=== PATIENT | female | born 2000 | race Caucasian/White ===

== ENCOUNTER 2022-01-04 05:23 | Inpatient (IN) | payer MEDICAID ==
[2022-01-04] MEDS ORDERED: LACTATED RINGERS 1,000 ML IV ONE (05:36)
[2022-01-04] MEDS ORDERED: ACETAMINOPHEN 325 MG TAB PO PRN (05:58)
[2022-01-04] MEDS ORDERED: CARBOPROST TROMETHAMINE 250 MCG/1 ML INJ IM PRN (05:58)
[2022-01-04] MEDS ORDERED: BUTORPHANOL 2 MG/1 ML INJ IV PRN (05:58)
[2022-01-04] MEDS ORDERED: TERBUTALINE 1 MG/1 ML INJ SUB-Q PRN (05:58)
[2022-01-04] MEDS ORDERED: METHYLERGONOVINE MALEATE 0.2 MG/ML VIAL IM PRN (05:58)
[2022-01-04] MEDS ORDERED: LACTATED RINGERS 1,000 ML IV SCH (06:00)
[2022-01-04] MEDS ORDERED: OXYTOCIN DRIP 30 UNITS/500 ML BAG IV SCH (06:00)
--- NOTE | 2022-01-04 06:03 | History and Physical Report ---
History of Present Illness Date of examination: 01/04/22 Date of admission: 01/04/2022 Chief complaint: Contractions History of present illness: 21 y/o at 38-5/7 weeks presents to OB triage reporting regular and painful contractions. There is no vaginal bleeding or leakage of fluid. There is good movement. In OB triage, cervical exam is 4 cm dilated. She has a history of a previous delivery. She is admitted to labor and delivery in active labor and for evaluation and management of possible TOLAC. Past History Past Medical History: no pertinent history Past Surgical History: section Family/Genetic History: none Social history: no significant social history - Obstetrical History Expected Date of Delivery: 01/13/22 Actual Gestation: 38 Week(s) 5 Day(s) : 2 Para: 1 Hx # Term Pregnancies: 1 Number of Pregnancies: 0 Spontaneous Abortions: 0 Induced : 0 Number of Living Children: 1 Medications and Allergies Allergies Allergy/AdvReac Type Severity Reaction Status Date / Time No Known Allergies Allergy Verified 01/04/22 05:39 Active Meds: Active Medications Acetaminophen (Acetaminophen 325 Mg Tab) 650 mg PO Q4H PRN PRN Reason: Pain, Mild (1-3) Butorphanol Tartrate (Butorphanol 2 Mg/1 Ml Inj) 2 mg IV Q2H PRN PRN Reason: Pain, Moderate(4-6) LABOR PAIN Carboprost Tromethamine (Carboprost Tromethamine 250 Mcg/1 Ml Inj) 250 mcg IM ONCE PRN PRN Reason: Uterine Bleeding Fentanyl (Fentanyl 100 Mcg/2 Ml Inj) 100 mcg IV Q2H PRN PRN Reason: Pain,Severe (7-10) LABOR PAIN Lactated Ringer's (Lactated Ringers) 1,000 mls @ 125 mls/hr IV DIRECT EVELYN Oxytocin/Sodium Chloride (Pitocin/Ns 30 Unit/500ml) 30 units in 500 mls @ 40 mls/hr IV TITR EVELYN; Protocol Methylergonovine Maleate (Methylergonovine Maleate 0.2 Mg/Ml Vial) 0.2 mg IM ONCE PRN PRN Reason: Uterine Bleeding Terbutaline Sulfate (Terbutaline 1 Mg/1 Ml Inj) 0.25 mg SUB-Q ONCE PRN PRN Reason: Hyperstimulation/Hypertonicity Review of Systems All systems: negative - Vital Signs Vital signs: Vital Signs Temp Resp Pulse Ox 98.2 F 14 100 01/04/22 05:27 01/04/22 05:27 01/04/22 05:27 Temp Pulse Resp BP Pulse Ox 98.2 F 91 H 14 99 01/04/22 05:27 01/04/22 05:59 01/04/22 05:27 01/04/22 05:59 - Physical Exam Breasts: Positive: normal Cardiovascular: Regular rate Lungs: Positive: Normal air movement Abdomen: Positive: normal appearance Genitourinary (Female): Positive: normal external genitalia, normal perenium Vulva: both: normal Vagina: Positive: normal moisture Uterus: Positive: enlarged Adnexa: both: normal Anus/Rectum: Positive: normal perianal skin Extremities: Positive: normal Deep Tendon Reflex Grade: Normal +2 - Obstetrical FHR: category 1 Uterine Contraction Monitor Mode: External Cervical Dilatation: 4 Cervical Effacement Percentage: 70 station: -3 Uterine Contraction Frequency (min): 6 Uterine Contraction Pattern: Regular Uterine Tone Measurement Phase: Contraction Uterine Contraction Intensity: Moderate Results All other labs normal. Ultrasound: pending Assessment and Plan - Patient Problems (1) 38 weeks gestation of Current Visit: Yes Status: Acute Plan to address problem: care is up-to-date at [facility]. Morning nursing shift to call office to obtain records. GBS status is unknown at this time. No current risk factors warranting intrapartum GBS prophylaxis with PCN. (2) Active labor at term Current Visit: Yes Status: Acute Plan to address problem: The patient is 4 cm dilated. Admit to Labor and Delivery for management. (3) Desires (vaginal after ) trial Current Visit: Yes Status: Acute Plan to address problem: The patient had a previous delivery. Ultrasound for EFW is pending. Admit to Labor and Delivery to evaluate for possible TOLAC.
[2022-01-04 06:31] LABS: Hematocrit 30.5 % (30.3-42.9); Hemoglobin 9.5 gm/dl (10.1-14.3); Mean Corpuscular HGB Conc 31 % (30-34); Platelet Count 259 K/mm3 (140-440); Red Cell Distribution Width 17.5 % (13.2-15.2)
[2022-01-04 06:32] LABS: Mean Corpuscular Volume 65 fl (79-97)
--- NOTE | 2022-01-04 06:52 | Ultrasound Report ---
ULTRASOUND OBSTETRIC LIMITED INDICATION / CLINICAL INFORMATION: EFW ISABELA. Clinical Gestational Age (GA) in weeks, days: 38 weeks 5 days TECHNIQUE: Transabdominal. COMPARISON: None available. FINDINGS: Single live intrauterine in cephalic presentation with heart rate measuring 135 bpm. measurements correspond to a gestational age of 38 weeks and 0 days with an estimated weight of 3463 g. AMNIOTIC FLUID INDEX (cm) = 9.0 (normal = 7-24 cm) ADDITIONAL FINDINGS: None. IMPRESSION: 1. Single live intrauterine with ultrasound age of 38 weeks and 0 days. Estimated we ight of 3463 g. 2. Amniotic fluid index is within normal limits, measuring 9.0 cm. Signer Name: Ronnie Santiago MD Signed: 01/04/2022 6:47 AM Workstation Name: [id number]
--- NOTE | 2022-01-04 08:05 | Event Note ---
Date: 01/04/22 (0755) Evaluated patient in room, currently in pain states 03/06. Vag exam -3 posterior, soft and BBW. Instructed Rn to initiate epidural prep for patient. Informed aircraft load controller MD ( Dr. Broussard).
[2022-01-04] MEDS: fentaNYL 100 MCG/2 ML INJ IV PRN (08:11)
--- NOTE | 2022-01-04 08:14 | History and Physical Report ---
History of Present Illness Date of examination: 01/04/22 Date of admission: 01/04/22 05:58 01/04/2022 Chief complaint: Pain History of present illness: Patient present to labor and delivery c/o of contractions. Patient of [facility]. At 38.5wks gestation with a history if x1 post dates for macrosomia, 9lbs 2.5oz. She has had minimal care (x1 visit), GBS neg, RPR reactive ( titer 1:1). 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 (titer 1:1) Family/Genetic History: none - Obstetrical History Expected Date of Delivery: 01/13/22 Actual Gestation: 38 Week(s) 5 Day(s) : 2 Para: 1 Hx # Term Pregnancies: 0 Number of Pregnancies: 0 Spontaneous Abortions: 0 Induced : 0 Number of Living Children: 1 #1 year: 2,021 Birthweight: 9 lb 3.2 oz Method of Delivery: Gestational age at delivery: 41 (macrosomia) Medications and Allergies Allergies Allergy/AdvReac Type Severity Reaction Status Date / Time No Known Allergies Allergy Verified 01/04/22 05:39 Active Meds: Active Medications Acetaminophen (Acetaminophen 325 Mg Tab) 650 mg PO Q4H PRN PRN Reason: Pain, Mild (1-3) Butorphanol Tartrate (Butorphanol 2 Mg/1 Ml Inj) 2 mg IV Q2H PRN PRN Reason: Pain, Moderate(4-6) LABOR PAIN Carboprost Tromethamine (Carboprost Tromethamine 250 Mcg/1 Ml Inj) 250 mcg IM ONCE PRN PRN Reason: Uterine Bleeding Fentanyl (Fentanyl 100 Mcg/2 Ml Inj) 100 mcg IV Q2H PRN PRN Reason: Pain,Severe (7-10) LABOR PAIN Lactated Ringer's (Lactated Ringers) 1,000 mls @ 125 mls/hr IV DIRECT EVELYN Oxytocin/Sodium Chloride (Pitocin/Ns 30 Unit/500ml) 30 units in 500 mls @ 40 mls/hr IV TITR EVELYN; Protocol Methylergonovine Maleate (Methylergonovine Maleate 0.2 Mg/Ml Vial) 0.2 mg IM ONCE PRN PRN Reason: Uterine Bleeding Terbutaline Sulfate (Terbutaline 1 Mg/1 Ml Inj) 0.25 mg SUB-Q ONCE PRN PRN Reason: Hyperstimulation/Hypertonicity - Vital Signs Vital signs: Vital Signs Temp Resp Pulse Ox 98.2 F 14 100 01/04/22 05:27 01/04/22 05:27 01/04/22 05:27 Temp Pulse Resp BP Pulse Ox 98.2 F 105 H 14 99 01/04/22 05:27 01/04/22 08:04 01/04/22 05:27 01/04/22 08:04 Results Result Diagrams: 01/04/22 05:45 Abnormal lab results 01/04/22 Range/Units 05:45 Hgb 9.5 L (10.1-14.3) gm/dl MCV 65 L (79-97) fl MCH 20 L (28-32) pg RDW 17.5 H (13.2-15.2) % All other labs normal.
--- NOTE | 2022-01-04 08:21 | Event Note ---
Date: 01/04/22 The patient's previous delivery was on November 2020 and performed at [facility] in [place], [place]. According the patient, that was over 9 pounds upon delivery and she passed her due date. An operative report is unavailable at this time. Today, OB US Limited= SLIUP. Fundal Placenta. Vertex. 3463 g (58th %-ile). ISABELA= 9.0 cm. The current cervical exam is 6/70%/-3. The patient was counseled regarding the risks of attempting trial of labor after delivery and vaginal after section per ACOG Practice Bulletin 205. The patient understands that the risk of uterine rupture is less than 2%. As such, it is reasonable to attempt TOLAC at this time. Patient wishes to proceed. Consent form was signed. Epidural for pain control. Artificial rupture membranes thereafter. Consider intrauterine pressure catheter if needed.
[2022-01-04] MEDS ORDERED: ePHEDrine SULFATE 50 MG/1 ML INJ ONE (08:33)
[2022-01-04] MEDS ORDERED: NALOXONE 0.4 MG/1 ML INJ IV PRN (10:06)
[2022-01-04] MEDS ORDERED: ePHEDrine SULFATE 50 MG/1 ML INJ IV PRN (10:06)
--- NOTE | 2022-01-04 10:18 | Event Note ---
Date: 01/04/22 pt evaluated and very lengthy discussion on the risks, benefits and alternatives of having TOLAC less than 18months since her last surgery. Nurse present in the room. Pt states she now has better understanding however she still desires to have a trial of vag trial. Shared decision making done and I will continue expectant management. No pitocin will be given. Pelvic 6-7/90/-3 and intact. Will proceed for emergent section if non-reassuring FHR. All questions encouraged and answered.
[2022-01-04] MEDS: fentaNYL-BUPIV 2 MCG/ML-0.125% 200 MCG/100 ML BAG EPIDURAL SCH ×3 (10:36→23:28)
--- NOTE | 2022-01-04 15:21 | Anesthesia Consultation ---
Anesthesia Consult and Med Hx Date of service: 01/04/22 - Airway Anesthetic Teeth Evaluation: Good ROM Head & Neck: Adequate Mental/Hyoid Distance: Adequate Mallampati Class: Class II Intubation Access Assessment: Good - Pulmonary Exam CTA: Yes - Cardiac Exam Cardiac Exam: RRR - Pre-Operative Health Status ASA Pre-Surgery Classification: ASA2 Proposed Anesthetic Plan: Epidural - Pulmonary Hx Smoking: No Hx Asthma: No Hx Respiratory Symptoms: No SOB: No COPD: No Home Oxygen Therapy: No Hx Pneumonia: No Hx Sleep Apnea: No - Cardiovascular System Hx Hypertension: No Hx Coronary Artery Disease: No Hx Heart Attack/AMI: No Hx Angina: No Hx Percutaneous Transluminal Coronary Angioplasty (PTCA): No Hx Cardia Arrhythmia: No Hx Pacemaker: No Hx Internal Defibrillator: No Hx Valvular Heart Disease: No Hx Heart Murmur: No Hx Peripheral Vascular Disease: No - Central Nervous System Hx Neuromuscular Disorder: No Hx Seizures: No CVA: No Hx Back Pain: No Hx Psychiatric Problems: No - Gastrointestinal Hx Ulcer: No Hx Gastroesophageal Reflux Disease: No - Endocrine Hx Renal Disease: No Hx End Stage Renal Disease: No Hx Cirrhosis: No Hx Liver Disease: No Hx Insulin Dependent Diabetes: No Hx Non-Insulin Dependent Diabetes: No Hx Thyroid Disease: No Hx Hypothyroidism: No Hx Hyperthyroidism: No - Hematic Hx Anemia: No Hx Sickle Cell Disease: No - Other Systems Hx Alcohol Use: No Hx Substance Use: No Hx Cancer: No Hx Obesity: No
[2022-01-04] MEDS ORDERED: ONDANSETRON 4 MG/2 ML INJ ONE (21:33)
[2022-01-05] MEDS ORDERED: ONDANSETRON 4 MG/2 ML INJ ONE (03:28)
[2022-01-05] MEDS: fentaNYL 100 MCG/2 ML INJ IV PRN ×2 (03:29→05:23)
[2022-01-05] MEDS: fentaNYL-BUPIV 2 MCG/ML-0.125% 200 MCG/100 ML BAG EPIDURAL SCH (05:37)
--- NOTE | 2022-01-05 05:59 | Event Note ---
Date: 01/05/22 The anesthesia team was consulted with regards to assessing the patient's neuraxial analgesia post placement of epidural catheter. EFM= category 1 TOCO= q 3-5 min SVE= 8/90%/-3. AROM'ed. Meconium noted. IUPC and FSE placed for closer monitoring. Amnioinfusion ordered. Pitocin (no higher than 4 mU/h) if CTX are not adequate.
[2022-01-05] MEDS ORDERED: SODIUM CHLORIDE 0.9% 1000 ML 1,000 ML VG SCH ×2 (06:00)
[2022-01-05] MEDS ORDERED: BUPIVACAINE/PF (0.5%) 5 MG/1 ML 30 ML VIAL INFILTRATI ONE (08:07)
[2022-01-05] MEDS ORDERED: MINERAL OIL 30 ML ORAL LIQD ONE ×2 (09:31→11:33)
[2022-01-05] MEDS ORDERED: AZITHROMYCIN 250 MG TAB PO ONE ×2 (10:00→17:30)
[2022-01-05] MEDS ORDERED: OXYTOCIN DRIP 30 UNITS/500 ML BAG IV SCH (10:00)
--- NOTE | 2022-01-05 10:40 | Progress Note ---
Labor Epidural - Labor Epidural Start Time: 09:12 Stop Time: :17 Performed by:: RADHA VELAZQUEZ Procedure: MICHELLE placed at BS. Pt on monitors. TO performed. Labs reviewed. Sterile technique maintained. VSS KYARA at 8cm L3-4. Cath at 11cm. Pt carlotta well.
--- NOTE | 2022-01-05 11:47 | Procedure Note ---
OB Delivery Note - Delivery Date of Delivery: 01/05/22 (1016) Surgeon: ANCA HDZ Estimated blood loss: other (400) - Vaginal Delivery presentation: vertex Delivery position: OA Intrapartum events: meconium, mult. late decelerations, mult.variable deceleratio Delivery induction: none Delivery augmentation: rupture of membranes, pitocin Delivery monitor: internal FHT, internal uterine Route of delivery: Delivery placenta: spontaneous Delivery cord: 3 umbilical vessels Episiotomy: none Delivery laceration: 2nd degree, vaginal side wall Delivery repair: vicryl Anesthesia: epidural Delivery comments: of live 8'0 female over bilateral 2nd degree vaginal wall lacerations and a 2nd degree perineal laceration under epidural anesthesia with Apgars of 3 and 8 at 1016 on 01/05/2022. not stimulated; Cord double clamped and cut by PARISH Hdz, and handed directly to awaiting NICU/RESP team due to meconium stained fluids. Cord blood gasses collected x 2; Cord blood also collected. Vaginal and Perineal lacerations repaired with 2-[address]-1 and SH. Placenta to pathology. - Infant A at 1 minute: 3 at 5 minutes: 7 Gender: Female (8'0)
[2022-01-05] MEDS ORDERED: WITCH HAZEL/ GLYCERIN PAD TP PRN (12:30)
[2022-01-05] MEDS ORDERED: BENZOCAINE/MENTHOL 20/0.5% TOP SPRAY 56 GM TP PRN (12:30)
[2022-01-05] MEDS ORDERED: diphenhydrAMINE 25 MG CAP PO PRN (12:30)
[2022-01-05] MEDS ORDERED: PROMETHAZINE 25 MG TAB PO PRN (12:30)
[2022-01-05] MEDS ORDERED: LANOLIN/ZINC/DIMETHICONE (LANSINOH) 7 GM TP PRN (12:30)
[2022-01-05] MEDS: IBUPROFEN 800 MG TAB PO SCH ×2 (12:50→16:59)
[2022-01-05] MEDS: ALUM-MAG HYDROXIDE-SIMETHICONE 200-200-20MG/5ML ORAL LIQD 30 ML PO PRN (13:49)
[2022-01-05] MEDS: HYDROcodone/ACETAMINOPHEN 5-325 MG TAB PO PRN (14:46)
[2022-01-05] MEDS: FERROUS SULFATE 325 MG TAB PO SCH (22:18)
[2022-01-06 00:14] LABS: Hematocrit 28.7 % (30.3-42.9); Hemoglobin 8.9 gm/dl (10.1-14.3)
[2022-01-06] MEDS: HYDROcodone/ACETAMINOPHEN 5-325 MG TAB PO PRN ×2 (01:35→08:37)
[2022-01-06] MEDS: IBUPROFEN 800 MG TAB PO SCH ×3 (06:47→23:45)
[2022-01-06 10:11] LABS: Hematocrit 28.4 % (30.3-42.9); Hemoglobin 8.7 gm/dl (10.1-14.3); Mean Corpuscular HGB Conc 31 % (30-34); Mean Corpuscular Volume 65 fl (79-97); Platelet Count 263 K/mm3 (140-440); Red Blood Count 4.34 M/mm3 (3.65-5.03); Red Cell Distribution Width 18.2 % (13.2-15.2)
[2022-01-06] MEDS: FERROUS SULFATE 325 MG TAB PO SCH ×2 (10:30→21:51)
[2022-01-06] MEDS: PRENATAL VIT27-FE FUMARATE-FOLIC ACID VIT TAB PO SCH (10:30)
[2022-01-06 11:54] LABS: Basophils % (Manual) 0 % (0.0-1.8); Burr Cells 1+; Eosinophils % (Manual) 0 % (0.0-4.3); Hypochromasia 2+; Platelet Estimate Consistent w Auto; Total Cells Counted 100
--- NOTE | 2022-01-06 12:19 | Event Note ---
Date: 01/06/22 pt evaluated in escruciating pain. fundal tenderness present and perineum with sutures and somewhat irregularly placed. No active bleed. Will give broad spectrum abx amp/gent/clinda for endomyometritis and to enhance wound healing. Pt told not to use shay-squirt bottle. Will repeat cbc in 24hrs. May have motrin ATC and percocet for better pain control. Bimanual with cervix 1cm dilated and small dark clots removed.
--- NOTE | 2022-01-06 12:23 | Progress Note ---
Assessment and Plan PPD#1, with endomyometritis and irreg perineal wound edges; asymptomatic anemia 1. give broad spectrum abx and repeat cbc 2. may have percocet and motrin for pain relief 3. Will also give IV hydration x24 until tacchycardia resolves 4. Continue iron supplement BID and add vitamin C BID and colace prn All questions encouraged and answered Subjective Date of service: 01/06/22 Principal diagnosis: PPD#1 Interval history: Nurse came in the room while I was evaluating patient and pt had not voided with unsuccessful attempt earlier. Pt taken to the bathroom by me and faucet turned on and pt voided 700cc of blood tinged urine. Pt is bottle feeding. Pt tolerating diet. Denies dysuria. Pt slightly limping as she ambulated and pt denied dizziness. Objective - Constitutional Vitals: Vital Signs - 12hr 01/06/22 01/06/22 01/06/22 00:48 01:35 06:47 Temperature 98.2 F Pulse Rate 125 H Respiratory 20 16 16 Rate Blood Pressure 123/61 O2 Sat by Pulse 96 Oximetry O2 Sat by Pulse Oximetry [ Anterior Bilateral Throughout] 01/06/22 01/06/22 08:05 08:37 Temperature 97.9 F Pulse Rate 125 H Respiratory 20 Rate Blood Pressure 145/71 O2 Sat by Pulse 97 Oximetry O2 Sat by Pulse 98 Oximetry [ Anterior Bilateral Throughout] General appearance: Present: mild distress - Neck Neck: normal ROM - Respiratory Respiratory effort: normal - Breasts Breasts: deferred - Cardiovascular Rhythm: other (maternal tacchycardia) Extremities: No edema - Gastrointestinal General gastrointestinal: Present: soft, non-tender - Genitourinary Female genitourinary: other (fundus at umbilicus and very tender, perineal laceration with irregular suturing and some overlap of skin; bimanual as stated earlier in previous event note) - Neurologic Neurologic: moves all extremities - Psychiatric Psychiatric: cooperative - Labs CBC & Chem 7: 01/06/22 09:41 Labs: Abnormal lab results 01/05/22 01/06/22 Range/Units 23:55 09:41 WBC 18.9 H (4.5-11.0) K/mm3 Hgb 8.9 L 8.7 L (10.1-14.3) gm/dl Hct 28.7 L 28.4 L (30.3-42.9) % MCV 65 L (79-97) fl MCH 20 L (28-32) pg RDW 18.2 H (13.2-15.2) % Seg Neuts % (Manual) 90.0 H (40.0-70.0) % Lymphocytes % (Manual) 6.0 L (13.4-35.0) % Seg Neutrophils # Man 17.0 H (1.8-7.7) K/mm3 Lymphocytes # (Manual) 1.1 L (1.2-5.4) K/mm3 Medications & Allergies - Medications Allergies/Adverse Reactions: Allergies No Known Allergies Allergy (Verified 01/04/22 05:39) Active Medications: Generic Name Dose Route Start Last Admin Trade Name Freq PRN Reason Stop Dose Admin Hydrocodone Bitart/Acetaminophen 2 each 01/05/22 12:30 01/06/22 08:37 Hydrocodone/Acetaminophen 5-325 Mg Tab PO 2 each Q6H PRN Administration Pain, Moderate (4-6) Al Hydrox/Mg Hydrox/Simethicone 30 ml 01/05/22 13:44 01/05/22 13:49 Alum-Mag Hydroxide-Simethicone 279-842-19ph/5ml Oral Liqd 30 Ml PO 30 ml Q4H PRN Administration Indigestion Benzocaine/Menthol 1 spray 01/05/22 12:30 01/05/22 14:46 Benzocaine/Menthol 20/0.5% Top [place] 56 Gm TP 1 spray PRN PRN Administration Episiotomy Pain Bisacodyl 10 mg 01/05/22 13:00 Bisacodyl 10 Mg Rect Supp [place] BID PRN Constipation Diphenhydramine HCl 25 mg 01/05/22 12:30 Diphenhydramine 25 Mg Cap PO Q6H PRN Itching Ferrous Sulfate 325 mg 01/05/22 22:00 01/06/22 10:30 Ferrous Sulfate 325 Mg Tab PO 325 mg BID EVELYN Administration Ampicillin Sodium 2 gm in 100 mls @ 100 mls/hr 01/06/22 13:00 Ampicillin/Ns 2 Gm/100 Ml IV 01/08/22 12:59 Q6H EVELYN Protocol Gentamicin Sulfate/Sodium Chloride 100 mg in 100 mls @ 200 mls/hr 01/06/22 12:12 Gentamicin/Ns 100 Mg/100 Ml IV 01/06/22 12:41 Q8HR ONE Protocol Clindamycin HCl 900 mg in 50 mls @ 100 mls/hr 01/06/22 13:00 Cleocin 900 Mg/50 Ml IV 01/08/22 12:59 Q8H EVELYN Protocol Ibuprofen 800 mg 01/05/22 12:00 01/06/22 06:47 Ibuprofen 800 Mg Tab PO 800 mg Q6H EVELYN Administration Multi-Ingredient Ointment 1 applic 01/05/22 12:30 Lanolin/Zinc/Dimethicone (Lansinoh) 7 Gm TP PRN PRN Sore Nipples Multivitamins/Iron/Calcium 1 each 01/06/22 10:00 01/06/22 10:30 [id number] Fumarate-Folic Acid Vit Tab PO 1 each QDAY EVELYN Administration Promethazine HCl 25 mg 01/05/22 12:30 01/05/22 12:21 Promethazine 25 Mg Tab PO 25 mg Q6H PRN Administration Nausea And Vomiting Sodium Chloride 10 ml 01/05/22 12:00 Sodium Chloride 0.9% 10 Ml Flush Syringe IV 01/10/22 11:59 PRN NR Witch Chanel/Glycerin 1 each 01/05/22 12:30 01/05/22 14:47 Witch Chanel/ Glycerin Pad TP 1 each PRN PRN Administration Hemorrhoid/cleansing/soothing
[2022-01-06] MEDS: AMPICILLIN/NS 2 GM/100 ML 2 GM/100 ML BAG IV SCH ×2 (13:22→20:02)
[2022-01-06] MEDS: LACTATED RINGERS 1,000 ML IV SCH (13:38)
[2022-01-06] MEDS ORDERED: GENTAMICIN/NS 100 MG/100 ML 100 MG/100 ML BAG IV ONE (14:00)
[2022-01-06] MEDS: DOCUSATE SODIUM 100 MG CAP PO SCH (21:51)
[2022-01-07] MEDS: AMPICILLIN/NS 2 GM/100 ML 2 GM/100 ML BAG IV SCH ×3 (02:17→20:35)
[2022-01-07] MEDS: HYDROcodone/ACETAMINOPHEN 5-325 MG TAB PO PRN ×2 (02:21→20:32)
[2022-01-07] MEDS: IBUPROFEN 800 MG TAB PO SCH (05:10)
[2022-01-07] MEDS: LACTATED RINGERS 1,000 ML IV SCH (08:32)
--- NOTE | 2022-01-07 08:51 | Progress Note ---
Assessment and Plan A: PPD # 2 - afebrile P: Continue IV antibiotics CBC at 4 pm today Consider discharge this evening Subjective - Subjective Date of service: 01/07/22 Principal diagnosis: PPD#2 Patient reports: appetite normal [place]: doing well Objective - Vital Signs Latest vital signs: Vital Signs Temp Pulse Resp BP Pulse Ox Pulse Ox 01/07/22 05:10 20 01/07/22 02:21 20 01/07/22 01:33 98.7 F 114 H 20 124/62 96 01/06/22 23:45 20 01/06/22 20:00 98 01/06/22 15:25 97.9 F 95 H 20 122/63 97 01/06/22 09:43 103 H 122/58 98 Intake and Output 01/06/22 01/07/22 01/07/22 22:59 06:59 14:59 Intake Total 1390 820 Output Total 650 Balance 740 820 Intake: IV 1150 100 AMPICILLIN/NS 2 GM/100 ML 100 100 2 gm In 100 ml @ 100 mls /hr IV Q6H EVELYN Rx#: [id number] CLEOCIN 900 MG/50 mL 900 50 mg In 50 ml @ 100 mls/hr IV Q8H EVELYN Rx#:[id number] Lactated Ringers 1,000 ml 1000 @ 125 mls/hr IV DIRECT EVELYN Rx#:[id number] Oral 240 360 Intake, Free Water 360 Output: Urine 650 Void 650 Other: Total, Intake Amount 240 120 Total, Output Amount 650 Voiding Method Toilet # Voids Void 1 - Exam Breasts: Present: deferred Cardiovascular: Present: Regular rate (still with occasional tachycardia) Abdomen: Present: soft Vulva: both: normal Uterus: Present: fundal height below umbilicus Extremities: Present: normal Deep Tendon Reflex Grade: Normal +2 Incision: Present: normal - Labs Labs: Abnormal lab results 01/06/22 Range/Units 09:41 WBC 18.9 H (4.5-11.0) K/mm3 Hgb 8.7 L (10.1-14.3) gm/dl Hct 28.4 L (30.3-42.9) % MCV 65 L (79-97) fl MCH 20 L (28-32) pg RDW 18.2 H (13.2-15.2) % Seg Neuts % (Manual) 90.0 H (40.0-70.0) % Lymphocytes % (Manual) 6.0 L (13.4-35.0) % Seg Neutrophils # Man 17.0 H (1.8-7.7) K/mm3 Lymphocytes # (Manual) 1.1 L (1.2-5.4) K/mm3
[2022-01-07] MEDS: FERROUS SULFATE 325 MG TAB PO SCH ×2 (11:54→22:39)
[2022-01-07] MEDS: DOCUSATE SODIUM 100 MG CAP PO SCH ×2 (11:54→22:39)
[2022-01-07] MEDS: PRENATAL VIT27-FE FUMARATE-FOLIC ACID VIT TAB PO SCH (11:55)
--- NOTE | 2022-01-07 12:09 | Consultation ---
History of Present Illness - Reason for Consult Consult date: 01/07/22 Reason for consult: mental health eval - History of Present Psychiatric Illness The patient was seen today. She was admitted for childbirth. The patient is calm and cooperative. She is pleasant and polite. Her baby is at bedside. She is patting the baby's back in a loving way. The patient says this is her second child. She says she feels "tired, in pain a little and relieved." She says "relieved that I was able to push her out and not need a like I did with my first baby." She is smiling. The patient says she seen a psychiatrist when she was little for anger issues. She says "I'm able to control my anger better now." She also says she was depressed when she was a kid. 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 She says "that was about 4-5 years ago, but I have done that lately." The patient denies being on any medications. She says at the moment she feels pretty good. I discussed with the patient the benefit of a counselor to her as a young mom. She says "I don't need one right now, but maybe later." She denies SI/HI or hallucinations of any kind. She thanks me and wishes me a good day at the end of the visit. REVIEW OF SYSTEMS Constitutional: Negative for weight loss ENT: Negative for stridor Respiratory: Negative for cough or hemoptysis All other systems reviewed and are negative MENTAL STATUS General Appearance and Behavior: age appropriate, good eye contact, cooperative, calm and pleasant Cooperation: Cooperative Psychomotor Behavior: within normal limits Mood: pretty good Affect and affective range: Congruent with stated mood Thought Process: Goal oriented Thought Content: Reality oriented Speech: Normal volume and Regular rate and rhythm Suicidal Ideation: Denies Homicidal Ideation: Denies Hallucinations:Denies Delusions: None elicited Impulse Control: Normal Insight and Judgment: Good Memory: Good Attention: Attentive Orientation: alert and oriented X 4 Diagnosis: Encounter for Mental Health Eval Treatment Plan No scripts given Medical: per primary Disposition: Do not recommend acute psychiatric inpatient treatment Will sign off. Thanks Case staffed with Dr. Joshi Medications and Allergies Allergies Allergy/AdvReac Type Severity Reaction Status Date / Time No Known Allergies Allergy Verified 01/04/22 05:39 Home Medications Medication Instructions Recorded Confirmed Last Taken Type No Known Home Medications [No 01/06/22 01/06/22 Unknown History Reported Home Medications] Active Meds: Active Medications Hydrocodone Bitart/Acetaminophen (Hydrocodone/Acetaminophen 5-325 Mg Tab) 2 each PO Q6H PRN PRN Reason: Pain, Moderate (4-6) Last Admin: 01/07/22 02:21 Dose: 2 each Al Hydrox/Mg Hydrox/Simethicone (Alum-Mag Hydroxide-Simethicone [id number]/5ml Oral Liqd 30 Ml) 30 ml PO Q4H PRN PRN Reason: Indigestion Last Admin: 01/05/22 13:49 Dose: 30 ml Benzocaine/Menthol (Benzocaine/Menthol 20/0.5% Top [place] 56 Gm) 1 spray TP PRN PRN PRN Reason: Episiotomy Pain Last Admin: 01/05/22 14:46 Dose: 1 spray Bisacodyl (Bisacodyl 10 Mg Rect Supp) 10 mg [place] BID PRN PRN Reason: Constipation Diphenhydramine HCl (Diphenhydramine 25 Mg Cap) 25 mg PO Q6H PRN PRN Reason: Itching Docusate Sodium (Docusate Sodium 100 Mg Cap) 100 mg PO BID [facility] Last Admin: 01/07/22 11:54 Dose: 100 mg Ferrous Sulfate (Ferrous Sulfate 325 Mg Tab) 325 mg PO BID [facility] Last Admin: 01/07/22 11:54 Dose: 325 mg Ampicillin Sodium (Ampicillin/Ns 2 Gm/100 Ml) 2 gm in 100 mls @ 100 mls/hr IV Q6H EVELYN; Protocol Stop: 01/08/22 12:59 Last Admin: 01/07/22 08:26 Dose: 100 mls/hr Clindamycin HCl (Cleocin 900 Mg/50 Ml) 900 mg in 50 mls @ 100 mls/hr IV Q8H EVELYN; Protocol Stop: 01/08/22 12:59 Last Admin: 01/06/22 23:45 Dose: 100 mls/hr Lactated Ringer's (Lactated Ringers) 1,000 mls @ 125 mls/hr IV DIRECT EVELYN Stop: 01/11/22 20:59 Last Admin: 01/07/22 08:32 Dose: 125 mls/hr Ibuprofen (Ibuprofen 800 Mg Tab) 800 mg PO Q6H [facility] Last Admin: 01/07/22 05:10 Dose: 800 mg Multi-Ingredient Ointment (Lanolin/Zinc/Dimethicone (Lansinoh) 7 Gm) 1 applic TP PRN PRN PRN Reason: Sore Nipples Multivitamins/Iron/Calcium ( [id number] Fumarate-Folic Acid Vit Tab) 1 each PO QDAY [facility] Last Admin: 01/07/22 11:55 Dose: 1 each Promethazine HCl (Promethazine 25 Mg Tab) 25 mg PO Q6H PRN PRN Reason: Nausea And Vomiting Last Admin: 01/05/22 12:21 Dose: 25 mg Sodium Chloride (Sodium Chloride 0.9% 10 Ml Flush Syringe) 10 ml IV PRN NR Stop: 01/10/22 11:59 Witch Chanel/Glycerin (Witch Chanel/ Glycerin Pad) 1 each TP PRN PRN PRN Reason: Hemorrhoid/cleansing/soothing Last Admin: 01/05/22 14:47 Dose: 1 each Mental Status Exam - Vital signs Last Vital Signs Temp 98.0 F 01/07/22 08:44 Pulse 93 H 01/07/22 08:44 Resp 18 01/07/22 08:44 BP 115/60 01/07/22 08:44 Pulse Ox 98 01/07/22 08:44 Results Result Diagrams: 01/06/22 09:41 All other labs normal.
[2022-01-07 17:20] LABS: Basophils % (Auto) 0.1 % (0.0-1.8); Eosinophils # (Auto) 0.1 K/mm3 (0.0-0.4); Eosinophils % (Auto) 0.7 % (0.0-4.3); Hematocrit 27.2 % (30.3-42.9); Hemoglobin 8.2 gm/dl (10.1-14.3); Lymphocytes % (Auto) 6.1 % (13.4-35.0); Mean Corpuscular HGB Conc 30 % (30-34); Monocytes # (Auto) 0.6 K/mm3 (0.0-0.8); Monocytes % (Auto) 3.4 % (0.0-7.3); Platelet Count 291 K/mm3 (140-440); Red Blood Count 4.12 M/mm3 (3.65-5.03); Red Cell Distribution Width 18.4 % (13.2-15.2)
[2022-01-07 17:22] LABS: Mean Corpuscular Volume 66 fl (79-97)
--- NOTE | 2022-01-07 22:33 | XRay Report ---
ABDOMEN 1 VIEW 01/07/2022 9:22 PM INDICATION / CLINICAL INFORMATION: abdominal pain/ileus vs obstruction. COMPARISON: None available. FINDINGS: There is mild distention/dilatation of bowel loops within the mid abdomen. No free air is i dentified. No large calcifications IMPRESSION: Distention/dilatation of bowel loops within the abdomen appear to represent small bowel dilatation an d may represent small bowel obstruction. A small bowel follow-through series is recommended Signer Name: Henrique Young MD Signed: 01/07/2022 10:28 PM Workstation Name: [id number]
[2022-01-07] MEDS: GENTAMICIN 100 MG in SODIUM CHLORIDE 0.9% 100 ML IV SCH (22:44)
[2022-01-08] MEDS: IBUPROFEN 800 MG TAB PO SCH (00:27)
[2022-01-08] MEDS: ALUM-MAG HYDROXIDE-SIMETHICONE 200-200-20MG/5ML ORAL LIQD 30 ML PO PRN (01:15)
[2022-01-08] MEDS: AMPICILLIN/NS 2 GM/100 ML 2 GM/100 ML BAG IV SCH ×3 (02:52→15:53)
[2022-01-08 07:29] LABS: Alanine Aminotransferase 7 units/L (7-56); Albumin 2.4 g/dL (3.9-5); Blood Urea Nitrogen 9 mg/dL (7-17); Calcium 8.1 mg/dL (8.4-10.2); Hemolysis Index 0
[2022-01-08 07:30] LABS: BUN/Creatinine Ratio 18
--- NOTE | 2022-01-08 10:45 | Cat Scan Report ---
CT ABDOMEN AND PELVIS WITH CONTRAST INDICATION / CLINICAL INFORMATION: r/o obstruction POST PARDUM GASTROVIEW OMNIPAQUE 350 100ML. TECHNIQUE: Axial CT images were obtained through the abdomen and pelvis after 100 cc Omnipaque [address] scans at this location are performed using CT dose reduction for ALARA by means of automated exposure control. COMPARISON: Abdominal radiograph dated 01/07/2022 FINDINGS: LOWER CHEST: Atelectasis in bilateral lung bases with trace bilateral pleural effusions. AORTA / ARTERIES: No significant abnormality. IVC / VEINS: No significant abnormality. LYMPH NODES: No significant adenopathy. COLON: No significant abnormality. APPENDIX: Not visualized. STOMACH / SMALL BOWEL: There are mildly dilated fluid-filled loops of small bowel within the right he miabdomen. No clear transition point. PERITONEUM: Small amount of free fluid throughout the abdomen and pelvis. No free air. No fluid colle ction. LIVER: No significant abnormality. GALLBLADDER: No significant abnormality. BILE DUCTS: No significant abnormality. PANCREAS: No significant abnormality. SPLEEN: No significant abnormality. ADRENALS: No significant abnormality. RIGHT KIDNEY / URETER: No significant abnormality. LEFT KIDNEY / URETER: Left renal cyst. No hydronephrosis or nephrolithiasis. URINARY BLADDER: No significant abnormality. REPRODUCTIVE ORGANS: Post gravid uterus. SKELETAL SYSTEM: No significant abnormality. ADDITIONAL FINDINGS: None. IMPRESSION: 1. Mildly dilated fluid-filled loops of bowel throughout the abdomen. There is no transition point. T his finding suggests an adynamic ileus. Continued clinical follow-up is advised. Signer Name: Umesh Dixon DO Signed: 01/08/2022 10:40 AM Workstation Name: [id number]
[2022-01-08] MEDS: GENTAMICIN 100 MG in SODIUM CHLORIDE 0.9% 100 ML IV SCH ×2 (11:58→17:29)
--- NOTE | 2022-01-08 14:01 | Progress Note ---
Assessment and Plan PPD#3, now with distended abdomen, abnormal KUB and CT abd/pelvis 1. Consult to gen surgery done and I called to Dr. Arriaga contact lens technician and order for N/G tube placed in the computer as he requested. Nurses notified to carry out the order 2. Plan of care discussed with patient, with continue broad spectrum antibiotics as same is working and LR IV hydration 3. Will do OB ultrasound to ensure the uterine cavity is clear All questions encouraged and answered Subjective Date of service: 01/08/22 Principal diagnosis: PPD#3 Interval history: pt continues to have abdominal pain and no flatus since delivery. pt has not vomitted. pt states her voiding has improved and no longer has burning associated. Vag bleed less than a period. Denies dizziness or feeling week, shortness of breath for fever/chills. Compared to last evening when I saw pt and ordered KUB with distended abd and followed by CT abd/pelvis this am, she states the pain is the same. Objective - Constitutional Vitals: Vital Signs - 12hr 01/08/22 01/08/22 07:30 09:24 Temperature 97.8 F Pulse Rate 89 Respiratory 18 Rate Blood Pressure 135/65 O2 Sat by Pulse 96 Oximetry O2 Sat by Pulse 99 Oximetry [ Anterior Bilateral Throughout] General appearance: Present: mild distress - Neck Neck: normal ROM - Respiratory Respiratory effort: normal - Breasts Breasts: deferred - Cardiovascular Rhythm: regular Extremities: No edema - Gastrointestinal General gastrointestinal: Present: hypoactive bowel sounds (almost absent) - Genitourinary Female genitourinary: other (Fundus continues to be tender, lochia small) - Integumentary Integumentary: warm, dry - Neurologic Neurologic: moves all extremities - Psychiatric Psychiatric: cooperative - Labs CBC & Chem 7: 01/07/22 16:42 01/08/22 06:49 Labs: Abnormal lab results 01/07/22 01/08/22 Range/Units 16:42 06:49 WBC 16.4 H (4.5-11.0) K/mm3 Hgb 8.2 L (10.1-14.3) gm/dl Hct 27.2 L (30.3-42.9) % MCV 66 L (79-97) fl MCH 20 L (28-32) pg RDW 18.4 H (13.2-15.2) % Lymph % (Auto) 6.1 L (13.4-35.0) % Lymph # (Auto) 1.0 L (1.2-5.4) K/mm3 Seg Neutrophils % 89.7 H (40.0-70.0) % Seg Neutrophils # 14.7 H (1.8-7.7) K/mm3 Sodium 136 L (137-145) mmol/L Creatinine 0.5 L (0.6-1.2) mg/dL Calcium 8.1 L (8.4-10.2) mg/dL Total Protein 4.9 L (6.3-8.2) g/dL Albumin 2.4 L (3.9-5) g/dL Medications & Allergies - Medications Allergies/Adverse Reactions: Allergies No Known Allergies Allergy (Verified 01/04/22 05:39) Home Medications: Home Medications Medication Instructions Recorded Confirmed Last Taken Type Amoxicillin/K Clav Tab [Augmentin 1 tab PO Q12HR 7 Days #14 tab 01/07/22 Unknown Rx 875 mg] Active Medications: Generic Name Dose Route Start Last Admin Trade Name Freq PRN Reason Stop Dose Admin Hydrocodone Bitart/Acetaminophen 2 each 01/05/22 12:30 01/07/22 20:32 Hydrocodone/Acetaminophen 5-325 Mg Tab PO 2 each Q6H PRN Administration Pain, Moderate (4-6) Al Hydrox/Mg Hydrox/Simethicone 30 ml 01/05/22 13:44 01/08/22 01:15 Alum-Mag Hydroxide-Simethicone [id number]/5ml Oral Liqd 30 Ml PO 30 ml Q4H PRN Administration Indigestion Benzocaine/Menthol 1 spray 01/05/22 12:30 01/05/22 14:46 Benzocaine/Menthol 20/0.5% [place] 56 Gm TP 1 spray PRN PRN Administration Episiotomy Pain Bisacodyl 10 mg 01/05/22 13:00 Bisacodyl 10 Mg Rect Supp [place] BID PRN Constipation Diphenhydramine HCl 25 mg 01/05/22 12:30 Diphenhydramine 25 Mg Cap PO Q6H PRN Itching Docusate Sodium 100 mg 01/06/22 22:00 01/07/22 22:39 Docusate Sodium 100 Mg Cap PO 100 mg BID EVELYN Administration Ferrous Sulfate 325 mg 01/05/22 22:00 01/07/22 22:39 Ferrous Sulfate 325 Mg Tab PO 325 mg BID EVELYN Administration Lactated Ringer's 1,000 mls @ 125 mls/hr 01/06/22 13:00 01/07/22 08:32 Lactated Ringers IV 01/11/22 20:59 125 mls/hr DIRECT EVELYN Administration Gentamicin Sulfate 100 mg/ 102.5 mls @ 200 mls/min 01/07/22 22:00 01/08/22 11:58 Sodium Chloride IV 01/08/22 14:01 200 mls/min Q8HR EVELYN Administration Protocol Ibuprofen 800 mg 01/05/22 12:00 01/08/22 00:27 Ibuprofen 800 Mg Tab PO 800 mg Q6H EVELYN Administration Morphine Sulfate 2 mg 01/08/22 12:33 Morphine 2 Mg/1 Ml Inj IV Q3H PRN Pain, Moderate (4-6) Multi-Ingredient Ointment 1 applic 01/05/22 12:30 Lanolin/Zinc/Dimethicone (Lansinoh) 7 Gm TP PRN PRN Sore Nipples Multivitamins/Iron/Calcium 1 each 01/06/22 10:00 01/07/22 11:55 [id number] Fumarate-Folic Acid Vit Tab PO 1 each QDAY EVELYN Administration Promethazine HCl 25 mg 01/05/22 12:30 01/05/22 12:21 Promethazine 25 Mg Tab PO 25 mg Q6H PRN Administration Nausea And Vomiting Sodium Chloride 10 ml 01/05/22 12:00 Sodium Chloride 0.9% 10 Ml Flush Syringe IV 01/10/22 11:59 PRN NR Witch Chanel/Glycerin 1 each 01/05/22 12:30 01/05/22 14:47 [place]/ Glycerin Pad TP 1 each PRN PRN Administration Hemorrhoid/cleansing/soothing
--- NOTE | 2022-01-08 14:43 | Consultation ---
History of Present Illness Consult date: 01/08/22 - History of present illness History of present illness: 21 yo female s/p . No bm or flatus for 4 days. C/o diffuse crampy abd pain/N/V. No h/o hernias. Past History Past Surgical History: Social history: no significant social history Medications and Allergies Allergies Allergy/AdvReac Type Severity Reaction Status Date / Time No Known Allergies Allergy Verified 01/04/22 05:39 Home Medications Medication Instructions Recorded Confirmed Last Taken Type Amoxicillin/K Clav Tab [Augmentin 1 tab PO Q12HR 7 Days #14 tab 01/07/22 Unknown Rx 875 mg] Active Meds: Active Medications Hydrocodone Bitart/Acetaminophen (Hydrocodone/Acetaminophen 5-325 Mg Tab) 2 each PO Q6H PRN PRN Reason: Pain, Moderate (4-6) Last Admin: 01/07/22 20:32 Dose: 2 each Al Hydrox/Mg Hydrox/Simethicone (Alum-Mag Hydroxide-Simethicone [id number]/5ml Oral Liqd 30 Ml) 30 ml PO Q4H PRN PRN Reason: Indigestion Last Admin: 01/08/22 01:15 Dose: 30 ml Benzocaine/Menthol (Benzocaine/Menthol 20/0.5% [place] 56 Gm) 1 spray TP PRN PRN PRN Reason: Episiotomy Pain Last Admin: 01/05/22 14:46 Dose: 1 spray Bisacodyl (Bisacodyl 10 Mg Rect Supp) 10 mg MO BID PRN PRN Reason: Constipation Diphenhydramine HCl (Diphenhydramine 25 Mg Cap) 25 mg PO Q6H PRN PRN Reason: Itching Docusate Sodium (Docusate Sodium 100 Mg Cap) 100 mg PO BID [facility] Last Admin: 01/07/22 22:39 Dose: 100 mg Ferrous Sulfate (Ferrous Sulfate 325 Mg Tab) 325 mg PO BID [facility] Last Admin: 01/07/22 22:39 Dose: 325 mg Lactated Ringer's (Lactated Ringers) 1,000 mls @ 125 mls/hr IV DIRECT EVELYN Stop: 01/11/22 20:59 Last Admin: 01/07/22 08:32 Dose: 125 mls/hr Ibuprofen (Ibuprofen 800 Mg Tab) 800 mg PO Q6H [facility] Last Admin: 01/08/22 00:27 Dose: 800 mg Morphine Sulfate (Morphine 2 Mg/1 Ml Inj) 2 mg IV Q3H PRN PRN Reason: Pain, Moderate (4-6) Multi-Ingredient Ointment (Lanolin/Zinc/Dimethicone (Lansinoh) 7 Gm) 1 applic TP PRN PRN PRN Reason: Sore Nipples Multivitamins/Iron/Calcium ( [id number] Fumarate-Folic Acid Vit Tab) 1 each PO QDAY EVELYN Last Admin: 01/07/22 11:55 Dose: 1 each Promethazine HCl (Promethazine 25 Mg Tab) 25 mg PO Q6H PRN PRN Reason: Nausea And Vomiting Last Admin: 01/05/22 12:21 Dose: 25 mg Sodium Chloride (Sodium Chloride 0.9% 10 Ml Flush Syringe) 10 ml IV PRN NR Stop: 01/10/22 11:59 [place]/Glycerin (Witch [place]el/ Glycerin Pad) 1 each TP PRN PRN PRN Reason: Hemorrhoid/cleansing/soothing Last Admin: 01/05/22 14:47 Dose: 1 each Exam Vital Signs Temp Resp Pulse Ox 98.2 F 14 100 01/04/22 05:27 01/04/22 05:27 01/04/22 05:27 - General physical appearance Positive: well developed, well nourished, no distress - Eyes Positive: PERRL, normal occular movement - ENT Positive: normal pinna, normal nares, normal mucosa, no hearing loss, no congestion - Neck Positive: no masses, no bruits, trachea midline, no venous distension - Respiratory Positive: normal expansion, normal respiratory effort, clear to auscultation - Cardiovascular Rhythm: regular Heart Sounds: Present: S1 & S2. Absent: rub, click - Extremities Extremities: no ischemia, pulses symmetrical, No edema - Breasts Breasts: normal, no mass, no skin changes - Abdomen Abdomen: Present: soft, bowel sounds hypoactive, distended (Moderately distended). Absent: tender, masses, rebound, guarding Hernia: none - Genitourinary Male Genitourinary: normal Female Genitourinary: normal - Integumentary no rash, no growths, no abnormal pigmentation - Neurologic Neurologic: alert and oriented to time, place and person, motor strength and sensation are grossly intact - Musculoskeletal normal gait, normal posture - Psychiatric Psychiatric: appropriate mood/affect, intact judgment & insight Results - Labs 01/07/22 16:42 01/08/22 06:49 Abnormal lab results 01/07/22 01/08/22 Range/Units 16:42 06:49 WBC 16.4 H (4.5-11.0) K/mm3 Hgb 8.2 L (10.1-14.3) gm/dl Hct 27.2 L (30.3-42.9) % MCV 66 L (79-97) fl MCH 20 L (28-32) pg RDW 18.4 H (13.2-15.2) % Lymph % (Auto) 6.1 L (13.4-35.0) % Lymph # (Auto) 1.0 L (1.2-5.4) K/mm3 Seg Neutrophils % 89.7 H (40.0-70.0) % Seg Neutrophils # 14.7 H (1.8-7.7) K/mm3 Sodium 136 L (137-145) mmol/L Creatinine 0.5 L (0.6-1.2) mg/dL Calcium 8.1 L (8.4-10.2) mg/dL Total Protein 4.9 L (6.3-8.2) g/dL Albumin 2.4 L (3.9-5) g/dL Diabetes panel 01/08/22 Range/Units 06:49 Sodium 136 L (137-145) mmol/L Potassium 3.6 (3.6-5.0) mmol/L Chloride 101.5 (98-107) mmol/L Carbon Dioxide 24 (22-30) mmol/L BUN 9 (7-17) mg/dL Creatinine 0.5 L (0.6-1.2) mg/dL Glucose 69 (65-100) mg/dL Calcium 8.1 L (8.4-10.2) mg/dL AST 15 (5-40) units/L ALT 7 (7-56) units/L Alkaline Phosphatase 119 (35-129) units/L Total Protein 4.9 L (6.3-8.2) g/dL Albumin 2.4 L (3.9-5) g/dL Calcium panel 01/08/22 Range/Units 06:49 Calcium 8.1 L (8.4-10.2) mg/dL Albumin 2.4 L (3.9-5) g/dL Pituitary panel 01/08/22 Range/Units 06:49 Sodium 136 L (137-145) mmol/L Potassium 3.6 (3.6-5.0) mmol/L Chloride 101.5 (98-107) mmol/L Carbon Dioxide 24 (22-30) mmol/L BUN 9 (7-17) mg/dL Creatinine 0.5 L (0.6-1.2) mg/dL Glucose 69 (65-100) mg/dL Calcium 8.1 L (8.4-10.2) mg/dL Adrenal panel 01/08/22 Range/Units 06:49 Sodium 136 L (137-145) mmol/L Potassium 3.6 (3.6-5.0) mmol/L Chloride 101.5 (98-107) mmol/L Carbon Dioxide 24 (22-30) mmol/L BUN 9 (7-17) mg/dL Creatinine 0.5 L (0.6-1.2) mg/dL Glucose 69 (65-100) mg/dL Calcium 8.1 L (8.4-10.2) mg/dL Total Bilirubin 0.90 (0.1-1.2) mg/dL AST 15 (5-40) units/L ALT 7 (7-56) units/L Alkaline Phosphatase 119 (35-129) units/L Total Protein 4.9 L (6.3-8.2) g/dL Albumin 2.4 L (3.9-5) g/dL - Imaging Abdominal x-ray: report reviewed CT scan - abdomen: report reviewed CT scan - pelvis: report reviewed Assessment and Plan - Patient Problems (1) Paralytic ileus Current Visit: Yes Status: Acute Plan to address problem: 1) NPO 2) NG to LIS - inserted by myself 3) CMP, TSH and Mg level 4) CBC, BMP and AXR in the am 5) DC AlOH which can be constipating.
--- NOTE | 2022-01-08 15:22 | Ultrasound Report ---
ULTRASOUND PELVIS INDICATION / CLINICAL INFORMATION: retained products of conception; abd distension. TECHNIQUE: Transabdominal. Duplex Color Doppler used: Yes. COMPARISON: CT abdomen/pelvis 01/08/2022 FINDINGS: UTERUS: The uterus is enlarged as would be expected for a uterus. The uterus measures 18.5 x 9.1 x 9.9 cm. Within the lower uterine segment, there is heterogeneous material filling the endome trium. The thickness of the endometrial complex is 3 cm at this level. However, the remainder of the endometrium is thin and normal, extending into the body and fundus of the uterus. There is no associa freddie vascularity with the heterogeneous material within the lower uterine segment and therefore statis tically, the material is much more likely to be blood products or hemorrhage rather than retained pro ducts of conception. Neither ovary was identified. FREE FLUID: None. ADDITIONAL FINDINGS: None. IMPRESSION: 1. Focal area of heterogeneous products within the endometrium of the lower uterine segment without a ssociated vascularity. The appearance is more suggestive of hemorrhage or blood products rather than retained products of conception. The remainder of the endometrium is of normal thickness. Clinical co rrelation is recommended. 2. Nonvisualization of both ovaries. Signer Name: Olena Cruz MD Signed: 01/08/2022 3:18 PM Workstation Name: [id number]
--- NOTE | 2022-01-08 15:26 | XRay Report ---
ABDOMEN, 2 VIEW INDICATION / CLINICAL INFORMATION: ileus. Dobbhoff placement COMPARISON: Prior abdomen, 01/07/2022, prior CT abdomen/pelvis 01/08/2022 FINDINGS: Interval placement of NG tube. The tip is well positioned within the midportion of the stomach and is in satisfactory position. Bowel gas pattern remains abnormal with moderate gaseous distention of both small and large bowel. Ov erall bowel gas pattern is stable from earlier CT scan. IMPRESSION: 1. Satisfactory positioning of NG tube. 2. Stable appearance of abnormal bowel gas pattern. Signer Name: Olena Cruz MD Signed: 01/08/2022 3:22 PM Workstation Name: [email or web address]
[2022-01-08] MEDS ORDERED: AMPICILLIN/NS 2 GM/100 ML 2 GM/100 ML BAG IV ONE (15:50)
[2022-01-08] MEDS: LACTATED RINGERS 1,000 ML IV SCH (16:02)
[2022-01-08 16:50] LABS: Basophils % (Auto) 0.2 % (0.0-1.8); Eosinophils # (Auto) 0.1 K/mm3 (0.0-0.4); Hematocrit 26.5 % (30.3-42.9); Hemoglobin 8.3 gm/dl (10.1-14.3); Lymphocytes # (Auto) 0.8 K/mm3 (1.2-5.4); Lymphocytes % (Auto) 6.3 % (13.4-35.0); Mean Corpuscular HGB Conc 31 % (30-34); Monocytes # (Auto) 0.7 K/mm3 (0.0-0.8); Monocytes % (Auto) 5.3 % (0.0-7.3); Platelet Count 366 K/mm3 (140-440); Red Blood Count 4.08 M/mm3 (3.65-5.03); Red Cell Distribution Width 18.5 % (13.2-15.2)
[2022-01-08 16:52] LABS: Mean Corpuscular Volume 65 fl (79-97)
[2022-01-08 17:15] LABS: Alanine Aminotransferase 7 units/L (7-56); Albumin 2.5 g/dL (3.9-5); BUN/Creatinine Ratio 18; Blood Urea Nitrogen 7 mg/dL (7-17); Calcium 8.3 mg/dL (8.4-10.2); Hemolysis Index 2
[2022-01-09 03:56] LABS: Basophils % (Auto) 0.2 % (0.0-1.8); Eosinophils # (Auto) 0.1 K/mm3 (0.0-0.4); Eosinophils % (Auto) 1.5 % (0.0-4.3); Hematocrit 26.5 % (30.3-42.9); Hemoglobin 8.2 gm/dl (10.1-14.3); Lymphocytes # (Auto) 0.8 K/mm3 (1.2-5.4); Lymphocytes % (Auto) 9.1 % (13.4-35.0); Mean Corpuscular HGB Conc 31 % (30-34); Monocytes # (Auto) 0.7 K/mm3 (0.0-0.8); Monocytes % (Auto) 7.6 % (0.0-7.3); Platelet Count 375 K/mm3 (140-440); Red Blood Count 4.05 M/mm3 (3.65-5.03); Red Cell Distribution Width 18.6 % (13.2-15.2)
[2022-01-09 04:07] LABS: Mean Corpuscular Volume 65 fl (79-97)
[2022-01-09 04:26] LABS: Blood Urea Nitrogen 7 mg/dL (7-17); Calcium 8.1 mg/dL (8.4-10.2); Hemolysis Index 0
[2022-01-09 04:30] LABS: BUN/Creatinine Ratio 18
[2022-01-09] MEDS: MORPHINE 2 MG/1 ML INJ IV PRN ×2 (06:12→11:21)
--- NOTE | 2022-01-09 08:40 | Event Note ---
Date: 01/09/22 Dr Aguila called and given verbal sign out
--- NOTE | 2022-01-09 09:03 | XRay Report ---
ABDOMEN 2 VIEWS INDICATION / CLINICAL INFORMATION: ileus. COMPARISON: 01/08/2022 abdomen FINDINGS: TUBES / LINES: Stable satisfactory nasogastric tube position. BOWEL GAS PATTERN: Slight improvement in bowel gas pattern with decreased small bowel dilation and im provement in air-fluid levels. Oral contrast administered during the recent CT is now seen primarily throughout the colon. FREE AIR / EXTRALUMINAL GAS: None seen. ADDITIONAL FINDINGS: No significant additional findings. CHEST: Visualized chest shows no significant abnormality. IMPRESSION: 1. Improved small bowel dilation and oral contrast passage into the colon. Findings are most consiste nt with an improving adynamic ileus. 2. Stable satisfactory nasogastric tube position. Signer Name: Pito Ray MD Signed: 01/09/2022 8:59 AM Workstation Name: [email or web address]
--- NOTE | 2022-01-09 09:51 | Progress Note ---
Assessment and Plan A: PPD#4 s/p Mild distention of abdomen NG tube in place, 100ml of green fluid noted in canister KUB this am shows improved sml bowel dilation/ improved dynamic ileus, with NG tube stable RLQ pain 4/10 scale that goes across lower abdomen to midline. H/H stable WBC wnl P: Continue routine PP care Continue completion of antibiotic today Await general surgery assessment Contact Dr. Mathew of pt's status. Subjective - Subjective Date of service: 01/09/22 Principal diagnosis: PPD#4 Patient reports: flatus (minimal last night per pt), other (RLQ pain from flank across to midline) Objective - Vital Signs Latest vital signs: Vital Signs Temp Pulse Resp BP BP Pulse Ox Pulse Ox 01/09/22 08:10 98.1 F 111 H 20 109/57 99 01/09/22 06:12 14 01/09/22 00:23 98.5 F 113 H 20 128/76 100 01/08/22 20:30 98 01/08/22 17:07 97.8 F 86 18 138/58 96 Intake and Output 01/08/22 01/09/22 01/09/22 23:59 07:59 15:59 Intake Total 0 Output Total 192 710 7578 Balance -350 -750 -1000 Intake: Oral 0 Output: Gastric Drainage 350 750 Urine 1000 Void 1000 Other: Total, Intake Amount 0 Total, Output Amount [phone] # Voids Void 1 1 - Exam Breasts: Present: deferred Cardiovascular: Present: Normal S1, Normal S2 Lungs: Present: Clear to auscultation, Normal air movement Abdomen: Present: distention, tenderness, other (NG tube in place) Uterus: Present: firm, fundal height below umbilicus Extremities: Present: normal - Labs Labs: Abnormal lab results 01/08/22 01/08/22 01/09/22 Range/Units 16:31 16:31 03:41 WBC 12.5 H (4.5-11.0) K/mm3 Hgb 8.3 L 8.2 L (10.1-14.3) gm/dl Hct 26.5 L 26.5 L (30.3-42.9) % MCV 65 L 65 L (79-97) fl MCH 20 L 20 L (28-32) pg RDW 18.5 H 18.6 H (13.2-15.2) % Lymph % (Auto) 6.3 L 9.1 L (13.4-35.0) % [place] % (Auto) 7.6 H (0.0-7.3) % Lymph # (Auto) 0.8 L 0.8 L (1.2-5.4) K/mm3 Seg Neutrophils % 87.2 H 81.6 H (40.0-70.0) % Seg Neutrophils # 10.9 H (1.8-7.7) K/mm3 Sodium 136 L (137-145) mmol/L Potassium (3.6-5.0) mmol/L Carbon Dioxide (22-30) mmol/L Creatinine 0.4 L (0.6-1.2) mg/dL Calcium 8.3 L (8.4-10.2) mg/dL Magnesium 1.50 L (1.7-2.3) mg/dL Total Protein 5.2 L (6.3-8.2) g/dL Albumin 2.5 L (3.9-5) g/dL 01/09/22 Range/Units 03:41 WBC (4.5-11.0) K/mm3 Hgb (10.1-14.3) gm/dl Hct (30.3-42.9) % MCV (79-97) fl MCH (28-32) pg RDW (13.2-15.2) % Lymph % (Auto) (13.4-35.0) % [place] % (Auto) (0.0-7.3) % Lymph # (Auto) (1.2-5.4) K/mm3 Seg Neutrophils % (40.0-70.0) % Seg Neutrophils # (1.8-7.7) K/mm3 Sodium (137-145) mmol/L Potassium 3.4 L (3.6-5.0) mmol/L Carbon Dioxide 20 L (22-30) mmol/L Creatinine 0.4 L (0.6-1.2) mg/dL Calcium 8.1 L (8.4-10.2) mg/dL Magnesium (1.7-2.3) mg/dL Total Protein (6.3-8.2) g/dL Albumin (3.9-5) g/dL
[2022-01-09] MEDS: DOCUSATE SODIUM 100 MG CAP PO SCH (11:13)
[2022-01-09] MEDS: PRENATAL VIT27-FE FUMARATE-FOLIC ACID VIT TAB PO SCH (11:13)
[2022-01-09] MEDS: FERROUS SULFATE 325 MG TAB PO SCH ×2 (11:13→22:47)
[2022-01-09] MEDS: IBUPROFEN 800 MG TAB PO SCH (11:14)
--- NOTE | 2022-01-09 11:31 | Event Note ---
Date: 01/09/[address] Mathew in detail of patient. New orders placed for D5 1/2NS @125ml ordered and stat CMP.
--- NOTE | 2022-01-09 13:07 | Event Note ---
Date: 01/09/22 Patient calm. NG tube in situ. Bowel sounds just a tinkle. Discussed with Art Model. CMP resulted now; I ordered KCL. Present mgt to continue.
--- NOTE | 2022-01-09 13:32 | Progress Note ---
Assessment and Plan - Patient Problems (1) Paralytic ileus Current Visit: Yes Status: Acute Plan to address problem: 1) Improving 2) Continue NG to LIS 3) AXR, CBC and BMP in the am Subjective Date of service: 01/09/22 Patient Reports: Positive: no new complaints, feels better, flatus. Negative: no bowel movement, nausea, vomiting Objective Vital Signs - 12hr 01/09/22 01/09/22 01/09/22 06:12 08:10 09:15 Temperature 98.1 F Pulse Rate 111 H Respiratory 14 20 Rate Blood Pressure 109/57 [Right] O2 Sat by Pulse 99 Oximetry O2 Sat by Pulse 99 Oximetry [ Anterior Bilateral Throughout] - Abdomen soft, not tender, bowel sounds hypoactive, distended, not rebound, not guarding (Mild to moderate distension is present.) - Labs 01/09/22 03:41 01/09/22 03:41 Diabetes panel 01/08/22 01/09/22 Range/Units 16:31 03:41 Sodium 136 L 138 (137-145) mmol/L Potassium 3.9 3.4 L (3.6-5.0) mmol/L Chloride 100.5 102.3 (98-107) mmol/L Carbon Dioxide 23 20 L (22-30) mmol/L BUN 7 7 (7-17) mg/dL Creatinine 0.4 L 0.4 L (0.6-1.2) mg/dL Glucose 77 70 (65-100) mg/dL Calcium 8.3 L 8.1 L (8.4-10.2) mg/dL AST 14 (5-40) units/L ALT 7 (7-56) units/L Alkaline Phosphatase 126 (35-129) units/L Total Protein 5.2 L (6.3-8.2) g/dL Albumin 2.5 L (3.9-5) g/dL Thyroid panel 01/08/22 Range/Units 16:31 TSH 0.646 (0.270-4.200) mlU/mL Calcium panel 01/08/22 01/09/22 Range/Units 16:31 03:41 Calcium 8.3 L 8.1 L (8.4-10.2) mg/dL Albumin 2.5 L (3.9-5) g/dL Pituitary panel 01/08/22 01/08/2201/09/22 Range/Units 16:31 16:31 03:41 Sodium 136 L 138 (137-145) mmol/L Potassium 3.9 3.4 L (3.6-5.0) mmol/L Chloride 100.5 102.3 (98-107) mmol/L Carbon Dioxide 23 20 L (22-30) mmol/L BUN 7 7 (7-17) mg/dL Creatinine 0.4 L 0.4 L (0.6-1.2) mg/dL Glucose 77 70 (65-100) mg/dL Calcium 8.3 L 8.1 L (8.4-10.2) mg/dL TSH 0.646 (0.270-4.200) mlU/mL Adrenal panel 01/08/22 01/09/22 Range/Units 16:31 03:41 Sodium 136 L 138 (137-145) mmol/L Potassium 3.9 3.4 L (3.6-5.0) mmol/L Chloride 100.5 102.3 (98-107) mmol/L Carbon Dioxide 23 20 L (22-30) mmol/L BUN 7 7 (7-17) mg/dL Creatinine 0.4 L 0.4 L (0.6-1.2) mg/dL Glucose 77 70 (65-100) mg/dL Calcium 8.3 L 8.1 L (8.4-10.2) mg/dL Total Bilirubin 0.90 (0.1-1.2) mg/dL AST 14 (5-40) units/L ALT 7 (7-56) units/L Alkaline Phosphatase 126 (35-129) units/L Total Protein 5.2 L (6.3-8.2) g/dL Albumin 2.5 L (3.9-5) g/dL - Imaging Abdominal x-ray: report reviewed
[2022-01-09] MEDS ORDERED: POTASSIUM CHLORIDE 10 MEQ 10 MEQ/100 ML BAG IV ONE (14:00)
[2022-01-10] MEDS: LACTATED RINGERS 1,000 ML IV SCH ×3 (01:25→12:00)
[2022-01-10 03:00] LABS: Blood Urea Nitrogen 9 mg/dL (7-17); Calcium 8.1 mg/dL (8.4-10.2); Hemolysis Index 49
[2022-01-10 03:07] LABS: BUN/Creatinine Ratio 23
[2022-01-10 03:27] LABS: Basophils % (Auto) 0.4 % (0.0-1.8); Eosinophils # (Auto) 0.1 K/mm3 (0.0-0.4); Eosinophils % (Auto) 0.9 % (0.0-4.3); Hematocrit 27.2 % (30.3-42.9); Hemoglobin 8.5 gm/dl (10.1-14.3); Lymphocytes # (Auto) 1.3 K/mm3 (1.2-5.4); Lymphocytes % (Auto) 11.9 % (13.4-35.0); Mean Corpuscular HGB Conc 31 % (30-34); Monocytes % (Auto) 9.7 % (0.0-7.3); Platelet Count 443 K/mm3 (140-440); Red Blood Count 4.18 M/mm3 (3.65-5.03); Red Cell Distribution Width 18.6 % (13.2-15.2)
[2022-01-10 03:34] LABS: Mean Corpuscular Volume 65 fl (79-97)
[2022-01-10] MEDS: IBUPROFEN 800 MG TAB PO SCH ×3 (07:56→18:46)
--- NOTE | 2022-01-10 08:55 | XRay Report ---
ABDOMEN 2 VIEWS INDICATION / CLINICAL INFORMATION: ileus. COMPARISON: 01/09/2022 FINDINGS: TUBES / LINES: Nasogastric tube appears unchanged BOWEL GAS PATTERN: There is contrast media in the colon. There is slight gaseous distention of loops of small bowel in the right abdomen. FREE AIR / EXTRALUMINAL GAS: None seen. ADDITIONAL FINDINGS: No significant additional findings. CHEST: Visualized chest shows no significant abnormality. IMPRESSION: 1. There are slightly distended loops of gas-filled small bowel right abdomen. There is contrast medi a noted in the colon. Signer Name: Ernie Reyna MD Signed: 01/10/2022 8:50 AM Workstation Name: [id number]
[2022-01-10] MEDS: FERROUS SULFATE 325 MG TAB PO SCH ×2 (09:56→22:00)
[2022-01-10] MEDS: PRENATAL VIT27-FE FUMARATE-FOLIC ACID VIT TAB PO SCH (09:56)
[2022-01-10] MEDS: DOCUSATE SODIUM 100 MG CAP PO SCH ×2 (09:56→22:00)
--- NOTE | 2022-01-10 10:49 | Progress Note ---
Assessment and Plan - Patient Problems (1) Paralytic ileus Current Visit: Yes Status: Acute Plan to address problem: 1) Slowly improving. 2) Please administer IV MgSO4 3) AXR, CBC, BMP and Mg in the am 4) Ambulate as much as possible. 5) No water or ice chips po Subjective Patient Reports: Positive: no new complaints, bowel movement (Eating ice chips.) Objective Vital Signs - 12hr 01/10/22 01/10/22 01/10/22 00:07 07:29 08:00 Temperature 98.3 F 98.0 F Pulse Rate 94 H 95 H Respiratory 18 20 Rate Blood Pressure 123/69 131/66 O2 Sat by Pulse 97 97 Oximetry O2 Sat by Pulse 98 Oximetry [ Anterior Bilateral Throughout] - Abdomen soft, not tender, bowel sounds hypoactive, distended (Mild to moderate distension is present.), not rebound, not guarding - Additional Exam NG output 1,375 ml yesterday. - Labs 01/10/22 02:20 01/10/22 02:20 Diabetes panel 01/10/22 Range/Units 02:20 Sodium 137 (137-145) mmol/L Potassium 4.0 (3.6-5.0) mmol/L Chloride 104.1 (98-107) mmol/L Carbon Dioxide 19 L (22-30) mmol/L BUN 9 (7-17) mg/dL Creatinine 0.4 L (0.6-1.2) mg/dL Glucose 58 L (65-100) mg/dL Calcium 8.1 L (8.4-10.2) mg/dL Calcium panel 01/10/22 Range/Units 02:20 Calcium 8.1 L (8.4-10.2) mg/dL Pituitary panel 01/10/22 Range/Units 02:20 Sodium 137 (137-145) mmol/L Potassium 4.0 (3.6-5.0) mmol/L Chloride 104.1 (98-107) mmol/L Carbon Dioxide 19 L (22-30) mmol/L BUN 9 (7-17) mg/dL Creatinine 0.4 L (0.6-1.2) mg/dL Glucose 58 L (65-100) mg/dL Calcium 8.1 L (8.4-10.2) mg/dL Adrenal panel 01/10/22 Range/Units 02:20 Sodium 137 (137-145) mmol/L Potassium 4.0 (3.6-5.0) mmol/L Chloride 104.1 (98-107) mmol/L Carbon Dioxide 19 L (22-30) mmol/L BUN 9 (7-17) mg/dL Creatinine 0.4 L (0.6-1.2) mg/dL Glucose 58 L (65-100) mg/dL Calcium 8.1 L (8.4-10.2) mg/dL Mg is 1.6 today. - Imaging Abdominal x-ray: report reviewed
--- NOTE | 2022-01-10 13:15 | Progress Note ---
Assessment and Plan PPD#5, with paralytic ileus slowly improving, followed by Dr Arriaga, Gen surgeon; pt afebrile 1. pt encouraged to ambulate today 2. Consult done to hospitalist for low magnesium as requested by Dr. Arriaga per nurse report 3. Routine care. 4. Continue IV hydration and N/G tube until ok'd by Gen surgeon. appreciate his services. All questions encouraged and answered Subjective Date of service: 01/10/22 Principal diagnosis: PPD#5 Interval history: pt states she passed flatus and BM small yesterday but nothing today. Pt is still with N/G tube draining 400cc dark green fluid for am shift thus far and pt states she feels better with the tube in place. Pt gets IV pain med with good relief. Pt has not ambulated today as yet and states she plans to do so. Vag bleed like a period. Baby is in NICU. Objective - Constitutional Vitals: Vital Signs - 12hr 01/10/22 01/10/22 07:29 08:00 Temperature 98.0 F Pulse Rate 95 H Respiratory 20 Rate Blood Pressure 131/66 O2 Sat by Pulse 97 Oximetry O2 Sat by Pulse 98 Oximetry [ Anterior Bilateral Throughout] General appearance: Present: no acute distress - Neck Neck: normal ROM - Respiratory Respiratory effort: normal - Breasts Breasts: deferred - Cardiovascular Rhythm: regular Extremities: No edema - Gastrointestinal General gastrointestinal: Present: soft, non-tender, hypoactive bowel sounds - Genitourinary Female genitourinary: other (lochia moderate amount. Fundus non-tender and 2cm below umbilicus) - Integumentary Integumentary: warm, dry - Neurologic Neurologic: moves all extremities - Psychiatric Psychiatric: cooperative - Labs CBC & Chem 7: 01/10/22 02:20 01/10/22 02:20 Labs: Abnormal lab results 01/10/22 01/10/22 Range/Units 02:20 02:20 Hgb 8.5 L (10.1-14.3) gm/dl Hct 27.2 L (30.3-42.9) % MCV 65 L (79-97) fl MCH 20 L (28-32) pg RDW 18.6 H (13.2-15.2) % Plt Count 443 H (140-440) K/mm3 Lymph % (Auto) 11.9 L (13.4-35.0) % [place] % (Auto) 9.7 H (0.0-7.3) % [place] # (Auto) 1.0 H (0.0-0.8) K/mm3 Seg Neutrophils % 77.1 H (40.0-70.0) % Seg Neutrophils # 8.2 H (1.8-7.7) K/mm3 Carbon Dioxide 19 L (22-30) mmol/L Creatinine 0.4 L (0.6-1.2) mg/dL Glucose 58 L (65-100) mg/dL Calcium 8.1 L (8.4-10.2) mg/dL Magnesium 1.60 L (1.7-2.3) mg/dL Medications & Allergies - Medications Allergies/Adverse Reactions: Allergies No Known Allergies Allergy (Verified 01/04/22 05:39) Home Medications: Home Medications Medication Instructions Recorded Confirmed Last Taken Type Amoxicillin/K Clav Tab [Augmentin 1 tab PO Q12HR 7 Days #14 tab 01/07/22 Unknown Rx 875 mg] Active Medications: Generic Name Dose Route Start Last Admin Trade Name Freq PRN Reason Stop Dose Admin Hydrocodone Bitart/Acetaminophen 2 each 01/05/22 12:30 01/07/22 20:32 Hydrocodone/Acetaminophen 5-325 Mg Tab PO 2 each Q6H PRN Administration Pain, Moderate (4-6) Benzocaine/Menthol 1 spray 01/05/22 12:30 01/05/22 14:46 Benzocaine/Menthol 20/0.5% Top [place] 56 Gm TP 1 spray PRN PRN Administration Episiotomy Pain Bisacodyl 10 mg 01/05/22 13:00 Bisacodyl 10 Mg Rect Supp [place] BID PRN Constipation Diphenhydramine HCl 25 mg 01/05/22 12:30 Diphenhydramine 25 Mg Cap PO Q6H PRN Itching Docusate Sodium 100 mg 01/06/22 22:00 01/10/22 09:56 Docusate Sodium 100 Mg Cap PO Not Given BID EVELYN Ferrous Sulfate 325 mg 01/05/22 22:00 01/10/22 09:56 Ferrous Sulfate 325 Mg Tab PO Not Given BID EVELYN Lactated Ringer's 1,000 mls @ 125 mls/hr 01/06/22 13:00 01/10/22 09:25 Lactated Ringers IV 01/11/22 20:59 Infused DIRECT EVELYN Infusion Ibuprofen 800 mg 01/05/22 12:00 01/10/22 07:56 Ibuprofen 800 Mg Tab PO Not Given Q6H [facility] Morphine Sulfate 2 mg 01/08/22 12:33 01/09/22 11:21 Morphine 2 Mg/1 Ml Inj IV 2 mg Q3H PRN Administration Pain, Moderate (4-6) Multi-Ingredient Ointment 1 applic 01/05/22 12:30 Lanolin/Zinc/Dimethicone (Lansinoh) 7 Gm TP PRN PRN Sore Nipples Multivitamins/Iron/Calcium 1 each 01/06/22 10:00 01/10/22 09:56 Raw31-Rx Fumarate-Folic Acid Vit Tab PO Not Given QDAY [facility] Promethazine HCl 25 mg 01/05/22 12:30 01/05/22 12:21 Promethazine 25 Mg Tab PO 25 mg Q6H PRN Administration Nausea And Vomiting Witch Chanel/Glycerin 1 each 01/05/22 12:30 01/05/22 14:47 Witch Chanel/ Glycerin Pad TP 1 each PRN PRN Administration Hemorrhoid/cleansing/soothing
--- NOTE | 2022-01-10 13:22 | Consultation ---
History of Present Illness - Reason for Consult Consult date: 01/10/22 hypomagnesemia Requesting physician: NORMA CALVO - History of Present Illness 21 YO Female with Ileus OPD #5 S/P . Consult placed by Dr. Calvo for hypomagnesemia. Patient resting comfortably in bed. No reported nursing events. Patient denies pain. Past History Past Medical History: No medical history, other (Reviewed) Past Surgical History: Social history: no significant social history Family history: no significant family history, other (Reviewed) Medications and Allergies Allergies Allergy/AdvReac Type Severity Reaction Status Date / Time No Known Allergies Allergy Verified 01/04/22 05:39 Home Medications Medication Instructions Recorded Confirmed Last Taken Type Amoxicillin/K Clav Tab [Augmentin 1 tab PO Q12HR 7 Days #14 tab 01/07/22 Unknown Rx 875 mg] Active Meds: Active Medications Hydrocodone Bitart/Acetaminophen (Hydrocodone/Acetaminophen 5-325 Mg Tab) 2 each PO Q6H PRN PRN Reason: Pain, Moderate (4-6) Last Admin: 01/07/22 20:32 Dose: 2 each Benzocaine/Menthol (Benzocaine/Menthol 20/0.5% Top [place] 56 Gm) 1 spray TP PRN PRN PRN Reason: Episiotomy Pain Last Admin: 01/05/22 14:46 Dose: 1 spray Bisacodyl (Bisacodyl 10 Mg Rect Supp) 10 mg [place] BID PRN PRN Reason: Constipation Diphenhydramine HCl (Diphenhydramine 25 Mg Cap) 25 mg PO Q6H PRN PRN Reason: Itching Docusate Sodium (Docusate Sodium 100 Mg Cap) 100 mg PO BID REPLACED BY [facility] Last Admin: 01/10/22 09:56 Dose: Not Given Ferrous Sulfate (Ferrous Sulfate 325 Mg Tab) 325 mg PO BID REPLACED BY [facility] Last Admin: 01/10/22 09:56 Dose: Not Given Lactated Ringer's (Lactated Ringers) 1,000 mls @ 125 mls/hr IV DIRECT EVELYN Stop: 01/11/22 20:59 Last Infusion: 01/10/22 09:25 Dose: Infused Ibuprofen (Ibuprofen 800 Mg Tab) 800 mg PO Q6H REPLACED BY [facility] Last Admin: 01/10/22 07:56 Dose: Not Given Morphine Sulfate (Morphine 2 Mg/1 Ml Inj) 2 mg IV Q3H PRN PRN Reason: Pain, Moderate (4-6) Last Admin: 01/09/22 11:21 Dose: 2 mg Multi-Ingredient Ointment (Lanolin/Zinc/Dimethicone (Lansinoh) 7 Gm) 1 applic TP PRN PRN PRN Reason: Sore Nipples Multivitamins/Iron/Calcium ( Daq06-Og Fumarate-Folic Acid Vit Tab) 1 each PO QDAY EVELYN Last Admin: 01/10/22 09:56 Dose: Not Given Promethazine HCl (Promethazine 25 Mg Tab) 25 mg PO Q6H PRN PRN Reason: Nausea And Vomiting Last Admin: 01/05/22 12:21 Dose: 25 mg Witch Chanel/Glycerin (Witch Chanel/ Glycerin Pad) 1 each TP PRN PRN PRN Reason: Hemorrhoid/cleansing/soothing Last Admin: 01/05/22 14:47 Dose: 1 each Review of Systems Constitutional: no weight loss, no weight gain, no fever, no chills Ears, nose, mouth and throat: no ear pain, no tinnitis, no nasal congestion, no sinus pressure Breasts: no change in shape, no swelling, no mass Cardiovascular: no chest pain, no orthopnea, no rapid/irregular heart beat Respiratory: no cough, no cough with sputum, no hemoptysis Gastrointestinal: nausea, no abdominal pain, no vomiting, no diarrhea, no constipation Genitourinary Female: no pelvic pain, no flank pain, no dysuria, no urinary frequency, no urgency Rectal: no pain, no incontinence, no bleeding Musculoskeletal: no neck stiffness, no neck pain Integumentary: no rash, no redness, no wounds, no jaundice Neurological: no head injury, no transient paralysis, no paralysis, no numbness, no seizures Psychiatric: no anxiety, no change in sleep habits, no sleep disturbances, no insomnia, no suicidal ideation, no disorientation Endocrine: no cold intolerance, no polyphagia, no polyuria, no flushing, no weight change Exam - Constitutional Vitals: Temp Pulse Resp BP Pulse Ox 98.0 F 95 H 20 131/66 98 01/10/22 07:29 01/10/22 07:29 01/10/22 07:29 01/10/22 07:29 01/10/22 08:00 General appearance: Present: mild distress - EENT Eyes: Present: PERRL ENT: hearing intact, clear oral mucosa - Neck Neck: Present: supple, normal ROM - Respiratory Respiratory effort: normal Respiratory: bilateral: CTA - Cardiovascular Heart Sounds: Present: S1 & S2. Absent: rub, click - Extremities Extremities: pulses symmetrical, No edema Peripheral Pulses: within normal limits - Abdominal General gastrointestinal: Present: soft, non-tender, non-distended, normal bowel sounds Female genitourinary: Present: normal - Integumentary Integumentary: Present: clear, warm, dry - Musculoskeletal Musculoskeletal: gait normal, strength equal bilaterally - Psychiatric Psychiatric: appropriate mood/affect, intact judgment & insight - Neurologic Neurologic: CNII-XII intact, moves all extremities Results - Labs CBC & Chem 7: 01/11/22 05:20 01/11/22 05:20 Labs: Abnormal lab results 01/10/22 01/10/22 Range/Units 02:20 02:20 Hgb 8.5 L (10.1-14.3) gm/dl Hct 27.2 L (30.3-42.9) % MCV 65 L (79-97) fl MCH 20 L (28-32) pg RDW 18.6 H (13.2-15.2) % Plt Count 443 H (140-440) K/mm3 Lymph % (Auto) 11.9 L (13.4-35.0) % [place] % (Auto) 9.7 H (0.0-7.3) % [place] # (Auto) 1.0 H (0.0-0.8) K/mm3 Seg Neutrophils % 77.1 H (40.0-70.0) % Seg Neutrophils # 8.2 H (1.8-7.7) K/mm3 Carbon Dioxide 19 L (22-30) mmol/L Creatinine 0.4 L (0.6-1.2) mg/dL Glucose 58 L (65-100) mg/dL Calcium 8.1 L (8.4-10.2) mg/dL Magnesium 1.60 L (1.7-2.3) mg/dL Assessment and Plan - Patient Problems (1) Hypomagnesemia syndrome Current Visit: Yes Status: Acute Plan to address problem: 2 g magnesium IV x1, repeat magnesium level in a.m., supportive care. Encourage increased oral intake and patient is able to tolerate oral diet. (2) Paralytic ileus Current Visit: Yes Status: Acute Plan to address problem: Early ambulation, advance diet as tolerated. Surgery team consulted.
[2022-01-10] MEDS ORDERED: MAGNESIUM SULFATE 2 GM/50 ML BAG IV ONE (14:30)
[2022-01-11] MEDS: LACTATED RINGERS 1,000 ML IV SCH (02:15)
[2022-01-11 05:35] LABS: Basophils % (Auto) 0.4 % (0.0-1.8); Eosinophils # (Auto) 0.2 K/mm3 (0.0-0.4); Eosinophils % (Auto) 1.6 % (0.0-4.3); Hematocrit 27.3 % (30.3-42.9); Hemoglobin 8.4 gm/dl (10.1-14.3); Lymphocytes # (Auto) 1.2 K/mm3 (1.2-5.4); Lymphocytes % (Auto) 11.6 % (13.4-35.0); Mean Corpuscular HGB Conc 31 % (30-34); Mean Corpuscular Volume 65 fl (79-97); Monocytes # (Auto) 0.6 K/mm3 (0.0-0.8); Platelet Count 470 K/mm3 (140-440); Red Blood Count 4.22 M/mm3 (3.65-5.03); Red Cell Distribution Width 18.6 % (13.2-15.2)
[2022-01-11 05:51] LABS: Blood Urea Nitrogen 6 mg/dL (7-17); Calcium 8.5 mg/dL (8.4-10.2); Hemolysis Index 6
[2022-01-11 05:52] LABS: BUN/Creatinine Ratio 15
--- NOTE | 2022-01-11 07:43 | Progress Note ---
Assessment and Plan Assessment and plan: #Hypomagnesemia -Mg level 1.60 -phosphorus, potassium and calcium levels WNL -4g IV magnesium ordered -can add oral supplementation once patient can tolerate PO #Metabolic acidosis -Bicarbonate 17 -can be secondary to recent vs starvation (patient NPO for several days) -patient has no history of renal failure and/or diabetes -will continue to monitor, will treat if continues to decrease #Microcytic anemia -Hgb 8.4; stable since admission -transfuse for Hgb less than 7 #Paralytic ileus -management per General Surgery #Advanced care planning -Disease education conducted, care plan discussed, diagnoses discussed, prognosis discussed, and patient acknowledges understanding with care plan -Time: +30 min History Interval history: No acute events overnight. Patient reports passing flatus and has had several small bowel movements in the last few days. She is eager to eat. She was advised that general surgery would see her and decide if it was okay for her to eat. She denies any history with hypomagnesemia in the past. Hospitalist Physical - Physical exam Narrative exam: GENERAL: Well-developed well-nourished. In no acute distress. HEENT: Normocephalic. Atraumatic. NECK: Supple. CHEST/LUNGS: CTAB on room air HEART/CARDIOVASCULAR: Mild tachycardia. No murmur, rubs or gallops appreciated. ABDOMEN: +BS. NT/ND. SKIN: No rashes noted. NEURO: No focal motor deficit. Follows all commands. MUSCULOSKELETAL: No joint effusion EXTREMITIES: No cyanosis, clubbing or edema. PSYCH: Cooperative. - Constitutional Vitals: Temp Pulse Resp BP Pulse Ox 98.4 F 108 H 18 126/55 99 01/10/22 16:58 01/10/22 16:58 01/10/22 16:58 01/10/22 16:58 01/10/22 20:42 General appearance: Present: no acute distress Results - Labs CBC & Chem 7: 01/11/22 05:20 01/11/22 05:20 Labs: Laboratory Last Values WBC 10.7 K/mm3 (4.5-11.0) 01/11/22 05:20 RBC 4.22 M/mm3 (3.65-5.03) 01/11/22 05:20 Hgb 8.4 gm/dl (10.1-14.3) L 01/11/22 05:20 Hct 27.3 % (30.3-42.9) L 01/11/22 05:20 MCV 65 fl (79-97) L 01/11/22 05:20 MCH 20 pg (28-32) L 01/11/22 05:20 MCHC 31 % (30-34) 01/11/22 05:20 RDW 18.6 % (13.2-15.2) H 01/11/22 05:20 Plt Count 470 K/mm3 (140-440) H 01/11/22 05:20 Lymph % (Auto) 11.6 % (13.4-35.0) L 01/11/22 05:20 [place] % (Auto) 6.0 % (0.0-7.3) 01/11/22 05:20 Eos % (Auto) 1.6 % (0.0-4.3) 01/11/22 05:20 Baso % (Auto) 0.4 % (0.0-1.8) 01/11/22 05:20 Lymph # (Auto) 1.2 K/mm3 (1.2-5.4) 01/11/22 05:20 [place] # (Auto) 0.6 K/mm3 (0.0-0.8) 01/11/22 05:20 Eos # (Auto) 0.2 K/mm3 (0.0-0.4) 01/11/22 05:20 Baso # (Auto) 0.0 K/mm3 (0.0-0.1) 01/11/22 05:20 Add Manual Diff Complete 01/06/22 09:41 Total Counted 100 01/06/22 09:41 Seg Neutrophils % 80.4 % (40.0-70.0) H 01/11/22 05:20 Seg Neuts % (Manual) 90.0 % (40.0-70.0) H 01/06/22 09:41 Band Neutrophils % 0 % 01/06/22 09:41 Lymphocytes % (Manual) 6.0 % (13.4-35.0) L 01/06/22 09:41 Reactive Lymphs % (Man) 0 % 01/06/22 09:41 Monocytes % (Manual) 4.0 % (0.0-7.3) 01/06/22 09:41 Eosinophils % (Manual) 0 % (0.0-4.3) 01/06/22 09:41 Basophils % (Manual) 0 % (0.0-1.8) 01/06/22 09:41 Metamyelocytes % 0 % 01/06/22 09:41 Myelocytes % 0 % 01/06/22 09:41 Promyelocytes % 0 % 01/06/22 09:41 Blast Cells % 0 % 01/06/22 09:41 Nucleated RBC % Not Reportable 01/06/22 09:41 Seg Neutrophils # 8.6 K/mm3 (1.8-7.7) H 01/11/22 05:20 Seg Neutrophils # Man 17.0 K/mm3 (1.8-7.7) H 01/06/22 09:41 Band Neutrophils # 0.0 K/mm3 01/06/22 09:41 Lymphocytes # (Manual) 1.1 K/mm3 (1.2-5.4) L 01/06/22 09:41 Abs React Lymphs (Man) 0.0 K/mm3 01/06/22 09:41 Monocytes # (Manual) 0.8 K/mm3 (0.0-0.8) 01/06/22 09:41 Eosinophils # (Manual) 0.0 K/mm3 (0.0-0.4) 01/06/22 09:41 Basophils # (Manual) 0.0 K/mm3 (0.0-0.1) 01/06/22 09:41 Metamyelocytes # 0.0 K/mm3 01/06/22 09:41 Myelocytes # 0.0 K/mm3 01/06/22 09:41 Promyelocytes # 0.0 K/mm3 01/06/22 09:41 Blast Cells # 0.0 K/mm3 01/06/22 09:41 WBC Morphology Not Reportable 01/06/22 09:41 Hypersegmented Neuts Not Reportable 01/06/22 09:41 Hyposegmented Neuts Not Reportable 01/06/22 09:41 Hypogranular Neuts Not Reportable 01/06/22 09:41 Smudge Cells Not Reportable 01/06/22 09:41 Toxic Granulation Not Reportable 01/06/22 09:41 Toxic Vacuolation Not Reportable 01/06/22 09:41 Dohle Bodies Not Reportable 01/06/22 09:41 Pelger-Huet Anomaly Not Reportable 01/06/22 09:41 John Rods Not Reportable 01/06/22 09:41 Platelet Estimate Consistent w auto 01/06/22 09:41 Clumped Platelets Not Reportable 01/06/22 09:41 Plt Clumps, EDTA Not Reportable 01/06/22 09:41 Large Platelets Not Reportable 01/06/22 09:41 Giant Platelets Not Reportable 01/06/22 09:41 Platelet Satelliting Not Reportable 01/06/22 09:41 Plt Morphology Comment Not Reportable 01/06/22 09:41 RBC Morphology Not Reportable 01/06/22 09:41 Dimorphic RBCs Not Reportable 01/06/22 09:41 Polychromasia Few 01/06/22 09:41 Hypochromasia 2+ 01/06/22 09:41 Poikilocytosis Not Reportable 01/06/22 09:41 Anisocytosis Not Reportable 01/06/22 09:41 Microcytosis 1+ 01/06/22 09:41 Macrocytosis Not Reportable 01/06/22 09:41 Spherocytes Not Reportable 01/06/22 09:41 Pappenheimer Bodies Not Reportable 01/06/22 09:41 Sickle Cells Not Reportable 01/06/22 09:41 Target Cells Not Reportable 01/06/22 09:41 Tear Drop Cells Not Reportable 01/06/22 09:41 Ovalocytes Not Reportable 01/06/22 09:41 Helmet Cells Not Reportable 01/06/22 09:41 [place] Bodies Not Reportable 01/06/22 09:41 [place] Rings Not Reportable 01/06/22 09:41 Ami Cells 1+ 01/06/22 09:41 Bite Cells Not Reportable 01/06/22 09:41 Crenated Cell Not Reportable 01/06/22 09:41 Elliptocytes Not Reportable 01/06/22 09:41 Acanthocytes (Spur) Not Reportable 01/06/22 09:41 Rouleaux Not Reportable 01/06/22 09:41 Hemoglobin C Crystals Not Reportable 01/06/22 09:41 Schistocytes Not Reportable 01/06/22 09:41 Malaria parasites Not Reportable 01/06/22 09:41 [place] Bodies Not Reportable 01/06/22 09:41 Hem Pathologist Commnt No 01/06/22 09:41 ABG pH 7.152 (7.320-7.450) L 01/05/22 10:43 POC ABG pCO2 52.0 mmHg (32.0-48.0) H 01/05/22 10:43 POC ABG pO2 51.2 mmHg (83-108) L 01/05/22 10:43 POC ABG HCO3 17.8 01/05/22 10:43 ABG O2 Saturation 86.3 (0-100) 01/05/22 10:43 POC ABG Base Excess -11.3 01/05/22 10:43 ABG Hemoglobin 15.7 (12.0-17.5) 01/05/22 10:43 ABG Oxyhemoglobin 84.8 (94-98) L 01/05/22 10:43 ABG Methemoglobin 0.7 (0.0-1.5) 01/05/22 10:43 ABG Sodium 135.2 mmol/L (136.0-145.0) L 01/05/22 10:43 ABG Potassium 4.9 mmol/L (3.40-4.50) H 01/05/22 10:43 ABG Chloride 104.0 mmol/L (98-107) 01/05/22 10:43 ABG Glucose 89 mg/dL (65-95) 01/05/22 10:43 ABG Lactate 7.51 (0.18-30.0) 01/05/22 10:43 Carboxyhemoglobin 1.0 (0.5-1.5) 01/05/22 10:43 FiO2 % 21 01/05/22 10:43 Sodium 137 mmol/L (137-145) 01/11/22 05:20 Potassium 3.7 mmol/L (3.6-5.0) 01/11/22 05:20 Chloride 101.5 mmol/L (98-107) 01/11/22 05:20 Carbon Dioxide 17 mmol/L (22-30) L 01/11/22 05:20 Anion Gap 22 mmol/L 01/11/22 05:20 BUN 6 mg/dL (7-17) L 01/11/22 05:20 Creatinine 0.4 mg/dL (0.6-1.2) L 01/11/22 05:20 Estimated GFR > 60 ml/min 01/11/22 05:20 BUN/Creatinine Ratio 15 % 01/11/22 05:20 Glucose 64 mg/dL (65-100) L 01/11/22 05:20 Calcium 8.5 mg/dL (8.4-10.2) 01/11/22 05:20 Magnesium 1.60 mg/dL (1.7-2.3) L 01/11/22 05:20 Total Bilirubin 0.90 mg/dL (0.1-1.2) 01/08/22 16:31 AST 14 units/L (5-40) 01/08/22 16:31 ALT 7 units/L (7-56) 01/08/22 16:31 Alkaline Phosphatase 126 units/L (35-129) 01/08/22 16:31 Total Protein 5.2 g/dL (6.3-8.2) L 01/08/22 16:31 Albumin 2.5 g/dL (3.9-5) L 01/08/22 16:31 Albumin/Globulin Ratio 0.9 % 01/08/22 16:31 TSH 0.646 mlU/mL (0.270-4.200) 01/08/22 16:31 Arterial Blood Glucose 89 mg/dL (65-95) 01/05/22 10:43 Arterial Blood Ionized Calcium 1.5 mg/dL (4.6-5.3) L 01/05/22 10:43 Syphilis IgG/IgM Ab Nonreactive (NonReactive) 01/05/22 12:17 SARS-CoV-2 (PCR) Negative (Negative) 01/04/22 09:45 Blood Type O POSITIVE 01/04/22 05:45 Antibody Screen Negative 01/04/22 05:45 [place]/IV: Voiding Method Toilet Active Medications - Current Medications Current Medications: Generic Name Dose Route Start Last Admin Trade Name Freq PRN Reason Stop Dose Admin Hydrocodone Bitart/Acetaminophen 2 each 01/05/22 12:30 01/07/22 20:32 Hydrocodone/Acetaminophen 5-325 Mg Tab PO 2 each Q6H PRN Administration Pain, Moderate (4-6) Benzocaine/Menthol 1 spray 01/05/22 12:30 01/05/22 14:46 Benzocaine/Menthol 20/0.5% Top [place] 56 Gm TP 1 spray PRN PRN Administration Episiotomy Pain Bisacodyl 10 mg 01/05/22 13:00 Bisacodyl 10 Mg Rect Supp [place] BID PRN Constipation Diphenhydramine HCl 25 mg 01/05/22 12:30 Diphenhydramine 25 Mg Cap PO Q6H PRN Itching Docusate Sodium 100 mg 01/06/22 22:00 01/10/22 22:00 Docusate Sodium 100 Mg Cap PO Not Given BID EVELYN Ferrous Sulfate 325 mg 01/05/22 22:00 01/10/22 22:00 Ferrous Sulfate 325 Mg Tab PO Not Given BID EVELYN Lactated Ringer's 1,000 mls @ 125 mls/hr 01/06/22 13:00 01/11/22 02:15 Lactated Ringers IV 01/11/22 20:59 125 mls/hr DIRECT EVELYN Administration Magnesium Sulfate 4 gm in 100 mls @ 25 mls/hr 01/11/22 07:42 Magnesium Sulfate 4gm/100ml IV 01/11/22 11:41 ONCE ONE Ibuprofen 800 mg 01/05/22 12:00 01/11/22 00:00 Ibuprofen 800 Mg Tab PO Not Given Q6H [facility] Morphine Sulfate 2 mg 01/08/22 12:33 01/09/22 11:21 Morphine 2 Mg/1 Ml Inj IV 2 mg Q3H PRN Administration Pain, Moderate (4-6) Multi-Ingredient Ointment 1 applic 01/05/22 12:30 Lanolin/Zinc/Dimethicone (Lansinoh) 7 Gm TP PRN PRN Sore Nipples Multivitamins/Iron/Calcium 1 each 01/06/22 10:00 01/10/22 09:56 [id number] Fumarate-Folic Acid Vit Tab PO Not Given QDAY EVELYN Promethazine HCl 25 mg 01/05/22 12:30 01/05/22 12:21 Promethazine 25 Mg Tab PO 25 mg Q6H PRN Administration Nausea And Vomiting Witch Chanel/Glycerin 1 each 01/05/22 12:30 01/05/22 14:47 Witch Chanel/ Glycerin Pad TP 1 each PRN PRN Administration Hemorrhoid/cleansing/soothing
[2022-01-11] MEDS ORDERED: MAGNESIUM SULFATE 4 GM/100 ML BAG IV ONE (08:30)
--- NOTE | 2022-01-11 09:48 | XRay Report ---
ABDOMEN 2 VIEWS INDICATION / CLINICAL INFORMATION: ileus. COMPARISON: 01/10/2022 FINDINGS: TUBES / LINES: Interval removal of the nasogastric tube. BOWEL GAS PATTERN: Stable mildly dilated small bowel loops and right colonic gas consistent with a st able mild adynamic ileus. Stable oral contrast within the left colon. FREE AIR / EXTRALUMINAL GAS: None seen. ADDITIONAL FINDINGS: No significant additional findings. CHEST: Visualized chest shows no significant abnormality. IMPRESSION: 1. Stable mild adynamic ileus status post nasogastric tube removal. Signer Name: Pito Ray MD Signed: 01/11/2022 9:44 AM Workstation Name: [id number]
--- NOTE | 2022-01-11 11:15 | Progress Note ---
Assessment and Plan - Patient Problems (1) Paralytic ileus Current Visit: Yes Status: Acute Plan to address problem: 1) Appears to be improving. 2) Sips of clears 3) Continue IV MgSO4 until serum magnesium is normal. 4) Ambulate in halls qid 5) Minimize narcotic use 6) CBC, BMP, Mg and AXR in the am Subjective Date of service: 01/11/22 Patient Reports: Positive: no new complaints, flatus. Negative: no bowel movement, nausea (NG "came out" yesterday. Denies abdominal pain.), vomiting Objective Vital Signs - 12hr 01/11/22 01/11/22 01/11/22 00:24 08:22 08:52 Temperature 98.0 F 98.1 F Pulse Rate 96 H 80 Respiratory 18 20 Rate Blood Pressure 127/70 130/68 O2 Sat by Pulse 99 97 Oximetry O2 Sat by Pulse 99 Oximetry [ Anterior Bilateral Throughout] - Abdomen soft, not tender, bowel sounds hypoactive, not rebound, not guarding (Mildly distended.) - Labs 01/11/22 05:20 01/11/22 05:20 Diabetes panel 01/11/22 Range/Units 05:20 Sodium 137 (137-145) mmol/L Potassium 3.7 (3.6-5.0) mmol/L Chloride 101.5 (98-107) mmol/L Carbon Dioxide 17 L (22-30) mmol/L BUN 6 L (7-17) mg/dL Creatinine 0.4 L (0.6-1.2) mg/dL Glucose 64 L (65-100) mg/dL Calcium 8.5 (8.4-10.2) mg/dL Calcium panel 01/11/22 Range/Units 05:20 Calcium 8.5 (8.4-10.2) mg/dL Pituitary panel 01/11/22 Range/Units 05:20 Sodium 137 (137-145) mmol/L Potassium 3.7 (3.6-5.0) mmol/L Chloride 101.5 (98-107) mmol/L Carbon Dioxide 17 L (22-30) mmol/L BUN 6 L (7-17) mg/dL Creatinine 0.4 L (0.6-1.2) mg/dL Glucose 64 L (65-100) mg/dL Calcium 8.5 (8.4-10.2) mg/dL Adrenal panel 01/11/22 Range/Units 05:20 Sodium 137 (137-145) mmol/L Potassium 3.7 (3.6-5.0) mmol/L Chloride 101.5 (98-107) mmol/L Carbon Dioxide 17 L (22-30) mmol/L BUN 6 L (7-17) mg/dL Creatinine 0.4 L (0.6-1.2) mg/dL Glucose 64 L (65-100) mg/dL Calcium 8.5 (8.4-10.2) mg/dL - Imaging Abdominal x-ray: report reviewed, image reviewed
[2022-01-11] MEDS: DOCUSATE SODIUM 100 MG CAP PO SCH ×2 (13:31→23:51)
[2022-01-11] MEDS: IBUPROFEN 800 MG TAB PO SCH ×3 (13:31→23:52)
[2022-01-11] MEDS: FERROUS SULFATE 325 MG TAB PO SCH ×2 (13:31→23:52)
[2022-01-11] MEDS: PRENATAL VIT27-FE FUMARATE-FOLIC ACID VIT TAB PO SCH (13:31)
--- NOTE | 2022-01-11 15:41 | Progress Note ---
Assessment and Plan PPD#6, with adynamic ileus, afebrile; hypomagnesemia; s/p N/G tube still with hypoactive bowel sounds 1. Appreciate gen surg team and will follow your recommendations for resolution of ileus 2. Appreciate hospitalist 3. Routine post delivery care All questions encouraged and answered Subjective Date of service: 01/11/22 Principal diagnosis: PPD#6 Interval history: pt passed flatus twice and states she had a little discomfort doing same and also had a small BM. denies nausea. pt is bottle feeding and breast pumping. Pt has not vomited since N/G tube fell out. Objective - Constitutional Vitals: Vital Signs - 12hr 01/11/22 01/11/22 08:22 08:52 Temperature 98.1 F Pulse Rate 80 Respiratory 20 Rate Blood Pressure 130/68 O2 Sat by Pulse 97 Oximetry O2 Sat by Pulse 99 Oximetry [ Anterior Bilateral Throughout] General appearance: Present: no acute distress - Neck Neck: normal ROM - Respiratory Respiratory effort: normal - Cardiovascular Rhythm: regular Extremities: No edema - Gastrointestinal General gastrointestinal: Present: distended (mild), hypoactive bowel sounds - Genitourinary Female genitourinary: other (Fundus still with tenderness; Lochia moderate) - Integumentary Integumentary: warm, dry - Neurologic Neurologic: moves all extremities - Psychiatric Psychiatric: cooperative - Labs CBC & Chem 7: 01/11/22 05:20 01/11/22 05:20 Labs: Abnormal lab results 01/11/22 01/11/22 Range/Units 05:20 05:20 Hgb 8.4 L (10.1-14.3) gm/dl Hct 27.3 L (30.3-42.9) % MCV 65 L (79-97) fl MCH 20 L (28-32) pg RDW 18.6 H (13.2-15.2) % Plt Count 470 H (140-440) K/mm3 Lymph % (Auto) 11.6 L (13.4-35.0) % Seg Neutrophils % 80.4 H (40.0-70.0) % Seg Neutrophils # 8.6 H (1.8-7.7) K/mm3 Carbon Dioxide 17 L (22-30) mmol/L BUN 6 L (7-17) mg/dL Creatinine 0.4 L (0.6-1.2) mg/dL Glucose 64 L (65-100) mg/dL Magnesium 1.60 L (1.7-2.3) mg/dL Medications & Allergies - Medications Allergies/Adverse Reactions: Allergies No Known Allergies Allergy (Verified 01/04/22 05:39) Home Medications: Home Medications Medication Instructions Recorded Confirmed Last Taken Type Amoxicillin/K Clav Tab [Augmentin 1 tab PO Q12HR 7 Days #14 tab 01/07/22 Unknown Rx 875 mg] Active Medications: Generic Name Dose Route Start Last Admin Trade Name Freq PRN Reason Stop Dose Admin Hydrocodone Bitart/Acetaminophen 2 each 01/05/22 12:30 01/07/22 20:32 Hydrocodone/Acetaminophen 5-325 Mg Tab PO 2 each Q6H PRN Administration Pain, Moderate (4-6) Benzocaine/Menthol 1 spray 01/05/22 12:30 01/05/22 14:46 Benzocaine/Menthol 20/0.5% Top [place] 56 Gm TP 1 spray PRN PRN Administration Episiotomy Pain Bisacodyl 10 mg 01/05/22 13:00 Bisacodyl 10 Mg Rect Supp [place] BID PRN Constipation Diphenhydramine HCl 25 mg 01/05/22 12:30 Diphenhydramine 25 Mg Cap PO Q6H PRN Itching Docusate Sodium 100 mg 01/06/22 22:00 01/11/22 13:31 Docusate Sodium 100 Mg Cap PO Not Given BID EVELYN Ferrous Sulfate 325 mg 01/05/22 22:00 01/11/22 13:31 Ferrous Sulfate 325 Mg Tab PO Not Given BID EVELYN Lactated Ringer's 1,000 mls @ 125 mls/hr 01/06/22 13:00 01/11/22 02:15 Lactated Ringers IV 01/11/22 20:59 125 mls/hr DIRECT EVELYN Administration Ibuprofen 800 mg 01/05/22 12:00 01/11/22 13:31 Ibuprofen 800 Mg Tab PO Not Given Q6H EVELYN Morphine Sulfate 2 mg 01/08/22 12:33 01/09/22 11:21 Morphine 2 Mg/1 Ml Inj IV 2 mg Q3H PRN Administration Pain, Moderate (4-6) Multi-Ingredient Ointment 1 applic 01/05/22 12:30 Lanolin/Zinc/Dimethicone (Lansinoh) 7 Gm TP PRN PRN Sore Nipples Multivitamins/Iron/Calcium 1 each 01/06/22 10:00 01/11/22 13:31 [id number] Fumarate-Folic Acid Vit Tab PO Not Given QDAY EVELYN Promethazine HCl 25 mg 01/05/22 12:30 01/05/22 12:21 Promethazine 25 Mg Tab PO 25 mg Q6H PRN Administration Nausea And Vomiting Witch Chanel/Glycerin 1 each 01/05/22 12:30 01/05/22 14:47 Witch Chanel/ Glycerin Pad TP 1 each PRN PRN Administration Hemorrhoid/cleansing/soothing
[2022-01-12 05:05] LABS: Basophils % (Auto) 0.3 % (0.0-1.8); Eosinophils # (Auto) 0.2 K/mm3 (0.0-0.4); Eosinophils % (Auto) 2.1 % (0.0-4.3); Hematocrit 28.7 % (30.3-42.9); Hemoglobin 8.9 gm/dl (10.1-14.3); Lymphocytes # (Auto) 1.4 K/mm3 (1.2-5.4); Lymphocytes % (Auto) 17.7 % (13.4-35.0); Mean Corpuscular HGB Conc 31 % (30-34); Monocytes # (Auto) 0.7 K/mm3 (0.0-0.8); Monocytes % (Auto) 8.1 % (0.0-7.3); Platelet Count 546 K/mm3 (140-440); Red Blood Count 4.39 M/mm3 (3.65-5.03); Red Cell Distribution Width 18.2 % (13.2-15.2)
[2022-01-12 05:06] LABS: Mean Corpuscular Volume 65 fl (79-97)
[2022-01-12 05:31] LABS: BUN/Creatinine Ratio 10; Blood Urea Nitrogen 4 mg/dL (7-17); Calcium 8.4 mg/dL (8.4-10.2); Hemolysis Index 0
[2022-01-12] MEDS ORDERED: MAGNESIUM SULFATE 2 GM/50 ML BAG IV ONE (08:00)
--- NOTE | 2022-01-12 08:31 | XRay Report ---
ABDOMEN 2 VIEWS INDICATION / CLINICAL INFORMATION: ileus. COMPARISON: One day prior FINDINGS: TUBES / LINES: None. BOWEL GAS PATTERN: Previously administered contrast remains within the colon. There are a few mildly dilated loops of small bowel. FREE AIR / EXTRALUMINAL GAS: None seen. ADDITIONAL FINDINGS: No significant additional findings. CHEST: Visualized chest shows no significant abnormality. IMPRESSION: 1. No significant change. Signer Name: Jose Snell MD Signed: 01/12/2022 8:27 AM Workstation Name: [id number]
--- NOTE | 2022-01-12 10:09 | Progress Note ---
Assessment and Plan - Patient Problems (1) Paralytic ileus Current Visit: Yes Status: Acute Plan to address problem: 1) Improving 2) CLD 3) CBC, BMP, Mg and AXR in the am Subjective Date of service: 01/12/22 Patient Reports: Positive: no new complaints, feels better, bowel movement Objective Vital Signs - 12hr 01/12/22 01/12/22 00:25 08:14 Temperature 98.6 F 98.2 F Pulse Rate 81 89 Respiratory 18 20 Rate Blood Pressure 124/73 Blood Pressure 130/50 [Left] O2 Sat by Pulse 98 96 Oximetry - Abdomen [id number] 4, PM_46_EXABD1 6, PM_46_EXABD1 8 Hernia: none - Labs 01/12/22 03:57 01/12/22 03:57 Diabetes panel 01/12/22 Range/Units 03:57 Sodium 140 (137-145) mmol/L Potassium 3.6 (3.6-5.0) mmol/L Chloride 104.6 (98-107) mmol/L Carbon Dioxide 22 (22-30) mmol/L BUN 4 L (7-17) mg/dL Creatinine 0.4 L (0.6-1.2) mg/dL Glucose 71 (65-100) mg/dL Calcium 8.4 (8.4-10.2) mg/dL Calcium panel 01/11/22 01/12/22 Range/Units 05:20 03:57 Calcium 8.4 (8.4-10.2) mg/dL Phosphorus 3.80 (2.5-4.5) mg/dL Pituitary panel 01/12/22 Range/Units 03:57 Sodium 140 (137-145) mmol/L Potassium 3.6 (3.6-5.0) mmol/L Chloride 104.6 (98-107) mmol/L Carbon Dioxide 22 (22-30) mmol/L BUN 4 L (7-17) mg/dL Creatinine 0.4 L (0.6-1.2) mg/dL Glucose 71 (65-100) mg/dL Calcium 8.4 (8.4-10.2) mg/dL Adrenal panel 01/12/22 Range/Units 03:57 Sodium 140 (137-145) mmol/L Potassium 3.6 (3.6-5.0) mmol/L Chloride 104.6 (98-107) mmol/L Carbon Dioxide 22 (22-30) mmol/L BUN 4 L (7-17) mg/dL Creatinine 0.4 L (0.6-1.2) mg/dL Glucose 71 (65-100) mg/dL Calcium 8.4 (8.4-10.2) mg/dL - Imaging Abdominal x-ray: report reviewed Additional Studies: Mg 1.7
[2022-01-12] MEDS: IBUPROFEN 800 MG TAB PO SCH (12:00)
--- NOTE | 2022-01-12 12:09 | Progress Note ---
Assessment and Plan Assessment and plan: #Hypomagnesemia -Mg level 1.70 today -phosphorus, potassium and calcium levels WNL -2g IV magnesium ordered; repeat Mg level ordered for the AM -will start oral supplementation tomorrow; patient can be discharged with a few days of Mag Ox #Metabolic acidosis-resolved -can be secondary to recent vs starvation (patient NPO for several days) -patient has no history of renal failure and/or diabetes -will continue to monitor, will treat if continues to decrease #Microcytic anemia -Hgb 8.4; stable since admission -continue iron supplementation -transfuse for Hgb less than 7 #Paralytic ileus-improving -management per General Surgery #Advanced care planning -Disease education conducted, care plan discussed, diagnoses discussed, prognosis discussed, and patient acknowledges understanding with care plan -Time: +30 min History Interval history: No acute events overnight. Tolerating clear liquid diet. She had a small bowel movement overnight, but has no complaints at this time. Hospitalist Physical - Physical exam Narrative exam: GENERAL: Well-developed well-nourished. In no acute distress. HEENT: Normocephalic. Atraumatic. NECK: Supple. CHEST/LUNGS: CTAB on room air HEART/CARDIOVASCULAR: Mild tachycardia. No murmur, rubs or gallops appreciated. ABDOMEN: +BS. NT/ND. SKIN: No rashes noted. NEURO: No focal motor deficit. Follows all commands. MUSCULOSKELETAL: No joint effusion EXTREMITIES: No cyanosis, clubbing or edema. PSYCH: Cooperative. - Constitutional Vitals: Temp Pulse Resp BP Pulse Ox 98.2 F 89 20 130/50 98 01/12/22 08:14 01/12/22 08:14 01/12/22 08:14 01/12/22 08:14 01/12/22 11:13 General appearance: Present: no acute distress Results - Labs CBC & Chem 7: 01/12/22 03:57 01/12/22 03:57 Labs: Laboratory Last Values WBC 8.2 K/mm3 (4.5-11.0) 01/12/22 03:57 RBC 4.39 M/mm3 (3.65-5.03) 01/12/22 03:57 Hgb 8.9 gm/dl (10.1-14.3) L 01/12/22 03:57 Hct 28.7 % (30.3-42.9) L 01/12/22 03:57 MCV 65 fl (79-97) L 01/12/22 03:57 MCH 20 pg (28-32) L 01/12/22 03:57 MCHC 31 % (30-34) 01/12/22 03:57 RDW 18.2 % (13.2-15.2) H 01/12/22 03:57 Plt Count 546 K/mm3 (140-440) H 01/12/22 03:57 Lymph % (Auto) 17.7 % (13.4-35.0) 01/12/22 03:57 [place] % (Auto) 8.1 % (0.0-7.3) H 01/12/22 03:57 Eos % (Auto) 2.1 % (0.0-4.3) 01/12/22 03:57 Baso % (Auto) 0.3 % (0.0-1.8) 01/12/22 03:57 Lymph # (Auto) 1.4 K/mm3 (1.2-5.4) 01/12/22 03:57 [place] # (Auto) 0.7 K/mm3 (0.0-0.8) 01/12/22 03:57 Eos # (Auto) 0.2 K/mm3 (0.0-0.4) 01/12/22 03:57 Baso # (Auto) 0.0 K/mm3 (0.0-0.1) 01/12/22 03:57 Add Manual Diff Complete 01/06/22 09:41 Total Counted 100 01/06/22 09:41 Seg Neutrophils % 71.8 % (40.0-70.0) H 01/12/22 03:57 Seg Neuts % (Manual) 90.0 % (40.0-70.0) H 01/06/22 09:41 Band Neutrophils % 0 % 01/06/22 09:41 Lymphocytes % (Manual) 6.0 % (13.4-35.0) L 01/06/22 09:41 Reactive Lymphs % (Man) 0 % 01/06/22 09:41 Monocytes % (Manual) 4.0 % (0.0-7.3) 01/06/22 09:41 Eosinophils % (Manual) 0 % (0.0-4.3) 01/06/22 09:41 Basophils % (Manual) 0 % (0.0-1.8) 01/06/22 09:41 Metamyelocytes % 0 % 01/06/22 09:41 Myelocytes % 0 % 01/06/22 09:41 Promyelocytes % 0 % 01/06/22 09:41 Blast Cells % 0 % 01/06/22 09:41 Nucleated RBC % Not Reportable 01/06/22 09:41 Seg Neutrophils # 5.9 K/mm3 (1.8-7.7) 01/12/22 03:57 Seg Neutrophils # Man 17.0 K/mm3 (1.8-7.7) H 01/06/22 09:41 Band Neutrophils # 0.0 K/mm3 01/06/22 09:41 Lymphocytes # (Manual) 1.1 K/mm3 (1.2-5.4) L 01/06/22 09:41 Abs React Lymphs (Man) 0.0 K/mm3 01/06/22 09:41 Monocytes # (Manual) 0.8 K/mm3 (0.0-0.8) 01/06/22 09:41 Eosinophils # (Manual) 0.0 K/mm3 (0.0-0.4) 01/06/22 09:41 Basophils # (Manual) 0.0 K/mm3 (0.0-0.1) 01/06/22 09:41 Metamyelocytes # 0.0 K/mm3 01/06/22 09:41 Myelocytes # 0.0 K/mm3 01/06/22 09:41 Promyelocytes # 0.0 K/mm3 01/06/22 09:41 Blast Cells # 0.0 K/mm3 01/06/22 09:41 WBC Morphology Not Reportable 01/06/22 09:41 Hypersegmented Neuts Not Reportable 01/06/22 09:41 Hyposegmented Neuts Not Reportable 01/06/22 09:41 Hypogranular Neuts Not Reportable 01/06/22 09:41 Smudge Cells Not Reportable 01/06/22 09:41 Toxic Granulation Not Reportable 01/06/22 09:41 Toxic Vacuolation Not Reportable 01/06/22 09:41 Dohle Bodies Not Reportable 01/06/22 09:41 Pelger-Huet Anomaly Not Reportable 01/06/22 09:41 John Rods Not Reportable 01/06/22 09:41 Platelet Estimate Consistent w auto 01/06/22 09:41 Clumped Platelets Not Reportable 01/06/22 09:41 Plt Clumps, EDTA Not Reportable 01/06/22 09:41 Large Platelets Not Reportable 01/06/22 09:41 Giant Platelets Not Reportable 01/06/22 09:41 Platelet Satelliting Not Reportable 01/06/22 09:41 Plt Morphology Comment Not Reportable 01/06/22 09:41 RBC Morphology Not Reportable 01/06/22 09:41 Dimorphic RBCs Not Reportable 01/06/22 09:41 Polychromasia Few 01/06/22 09:41 Hypochromasia 2+ 01/06/22 09:41 Poikilocytosis Not Reportable 01/06/22 09:41 Anisocytosis Not Reportable 01/06/22 09:41 Microcytosis 1+ 01/06/22 09:41 Macrocytosis Not Reportable 01/06/22 09:41 Spherocytes Not Reportable 01/06/22 09:41 Pappenheimer Bodies Not Reportable 01/06/22 09:41 Sickle Cells Not Reportable 01/06/22 09:41 Target Cells Not Reportable 01/06/22 09:41 Tear Drop Cells Not Reportable 01/06/22 09:41 Ovalocytes Not Reportable 01/06/22 09:41 Helmet Cells Not Reportable 01/06/22 09:41 Portilol-Luverne Bodies Not Reportable 01/06/22 09:41 [place] Rings Not Reportable 01/06/22 09:41 Ami Cells 1+ 01/06/22 09:41 Bite Cells Not Reportable 01/06/22 09:41 Crenated Cell Not Reportable 01/06/22 09:41 Elliptocytes Not Reportable 01/06/22 09:41 Acanthocytes (Spur) Not Reportable 01/06/22 09:41 Rouleaux Not Reportable 01/06/22 09:41 Hemoglobin C Crystals Not Reportable 01/06/22 09:41 Schistocytes Not Reportable 01/06/22 09:41 Malaria parasites Not Reportable 01/06/22 09:41 Mekhi Bodies Not Reportable 01/06/22 09:41 Hem Pathologist Commnt No 01/06/22 09:41 ABG pH 7.152 (7.320-7.450) L 01/05/22 10:43 POC ABG pCO2 52.0 mmHg (32.0-48.0) H 01/05/22 10:43 POC ABG pO2 51.2 mmHg (83-108) L 01/05/22 10:43 POC ABG HCO3 17.8 01/05/22 10:43 ABG O2 Saturation 86.3 (0-100) 01/05/22 10:43 POC ABG Base Excess -11.3 01/05/22 10:43 ABG Hemoglobin 15.7 (12.0-17.5) 01/05/22 10:43 ABG Oxyhemoglobin 84.8 (94-98) L 01/05/22 10:43 ABG Methemoglobin 0.7 (0.0-1.5) 01/05/22 10:43 ABG Sodium 135.2 mmol/L (136.0-145.0) L 01/05/22 10:43 ABG Potassium 4.9 mmol/L (3.40-4.50) H 01/05/22 10:43 ABG Chloride 104.0 mmol/L (98-107) 01/05/22 10:43 ABG Glucose 89 mg/dL (65-95) 01/05/22 10:43 ABG Lactate 7.51 (0.18-30.0) 01/05/22 10:43 Carboxyhemoglobin 1.0 (0.5-1.5) 01/05/22 10:43 FiO2 % 21 01/05/22 10:43 Sodium 140 mmol/L (137-145) 01/12/22 03:57 Potassium 3.6 mmol/L (3.6-5.0) 01/12/22 03:57 Chloride 104.6 mmol/L (98-107) 01/12/22 03:57 Carbon Dioxide 22 mmol/L (22-30) 01/12/22 03:57 Anion Gap 17 mmol/L 01/12/22 03:57 BUN 4 mg/dL (7-17) L 01/12/22 03:57 Creatinine 0.4 mg/dL (0.6-1.2) L 01/12/22 03:57 Estimated GFR > 60 ml/min 01/12/22 03:57 BUN/Creatinine Ratio 10 % 01/12/22 03:57 Glucose 71 mg/dL (65-100) 01/12/22 03:57 Calcium 8.4 mg/dL (8.4-10.2) 01/12/22 03:57 Phosphorus 3.80 mg/dL (2.5-4.5) 01/11/22 05:20 Magnesium 1.70 mg/dL (1.7-2.3) 01/12/22 03:57 Total Bilirubin 0.90 mg/dL (0.1-1.2) 01/08/22 16:31 AST 14 units/L (5-40) 01/08/22 16:31 ALT 7 units/L (7-56) 01/08/22 16:31 Alkaline Phosphatase 126 units/L (35-129) 01/08/22 16:31 Total Protein 5.2 g/dL (6.3-8.2) L 01/08/22 16:31 Albumin 2.5 g/dL (3.9-5) L 01/08/22 16:31 Albumin/Globulin Ratio 0.9 % 01/08/22 16:31 TSH 0.646 mlU/mL (0.270-4.200) 01/08/22 16:31 Arterial Blood Glucose 89 mg/dL (65-95) 01/05/22 10:43 Arterial Blood Ionized Calcium 1.5 mg/dL (4.6-5.3) L 01/05/22 10:43 Syphilis IgG/IgM Ab Nonreactive (NonReactive) 01/05/22 12:17 SARS-CoV-2 (PCR) Negative (Negative) 01/04/22 09:45 Blood Type O POSITIVE 01/04/22 05:45 Antibody Screen Negative 01/04/22 05:45 [place]/IV: Voiding Method Toilet Active Medications - Current Medications Current Medications: Generic Name Dose Route Start Last Admin Trade Name Freq PRN Reason Stop Dose Admin Hydrocodone Bitart/Acetaminophen 2 each 01/05/22 12:30 01/07/22 20:32 Hydrocodone/Acetaminophen 5-325 Mg Tab PO 2 each Q6H PRN Administration Pain, Moderate (4-6) Benzocaine/Menthol 1 spray 01/05/22 12:30 01/05/22 14:46 Benzocaine/Menthol 20/0.5% Top [place] 56 Gm TP 1 spray PRN PRN Administration Episiotomy Pain Bisacodyl 10 mg 01/05/22 13:00 Bisacodyl 10 Mg Rect Supp [place] BID PRN Constipation Diphenhydramine HCl 25 mg 01/05/22 12:30 Diphenhydramine 25 Mg Cap PO Q6H PRN Itching Docusate Sodium 100 mg 01/06/22 22:00 01/11/22 23:51 Docusate Sodium 100 Mg Cap PO Not Given BID [facility] Ferrous Sulfate 325 mg 01/05/22 22:00 01/11/22 23:52 Ferrous Sulfate 325 Mg Tab PO Not Given BID [facility] Ibuprofen 800 mg 01/05/22 12:00 01/11/22 23:52 Ibuprofen 800 Mg Tab PO Not Given Q6H [facility] Magnesium Oxide 400 mg 01/13/22 10:00 Magnesium Oxide 400 Mg Tab PO QDAY [facility] Morphine Sulfate 2 mg 01/08/22 12:33 01/09/22 11:21 Morphine 2 Mg/1 Ml Inj IV 2 mg Q3H PRN Administration Pain, Moderate (4-6) Multi-Ingredient Ointment 1 applic 01/05/22 12:30 Lanolin/Zinc/Dimethicone (Lansinoh) 7 Gm TP PRN PRN Sore Nipples Multivitamins/Iron/Calcium 1 each 01/06/22 10:00 01/11/22 13:31 [id number] Fumarate-Folic Acid Vit Tab PO Not Given QDAY [facility] Promethazine HCl 25 mg 01/05/22 12:30 01/05/22 12:21 Promethazine 25 Mg Tab PO 25 mg Q6H PRN Administration Nausea And Vomiting Witch Chanel/Glycerin 1 each 01/05/22 12:30 01/05/22 14:47 Witch Chanel/ Glycerin Pad TP 1 each PRN PRN Administration Hemorrhoid/cleansing/soothing
--- NOTE | 2022-01-12 19:35 | Progress Note ---
Assessment and Plan S/p PPD # 7 Ileus Hypomagnesia Stable Ileus improving. Managed by surgery Hypomanesia managed by hospitalist Stable OB marcelo. Continue care as per surgery and hospitalist Subjective Principal diagnosis: PPD#7 , Ileus Interval history: Pt. tolerating liquid diet. No nausea or vomiting. Positive BM Objective - Constitutional Vitals: Vital Signs - 12hr 01/12/22 01/12/22 01/12/22 08:14 11:13 15:40 Temperature 98.2 F 98.3 F Pulse Rate 89 83 Respiratory 20 20 Rate Blood Pressure 116/54 Blood Pressure 130/50 [Left] O2 Sat by Pulse 96 100 Oximetry O2 Sat by Pulse 98 Oximetry [ Anterior Bilateral Throughout] General appearance: Present: no acute distress - Respiratory Respiratory effort: normal Respiratory: bilateral: CTA - Cardiovascular Rhythm: regular Extremities: No edema - Gastrointestinal General gastrointestinal: Present: non-tender - Additional findings Additional findings: uterus firm - Labs CBC & Chem 7: 01/12/22 03:57 01/12/22 03:57 Labs: Abnormal lab results 01/12/22 01/12/22 Range/Units 03:57 03:57 Hgb 8.9 L (10.1-14.3) gm/dl Hct 28.7 L (30.3-42.9) % MCV 65 L (79-97) fl MCH 20 L (28-32) pg RDW 18.2 H (13.2-15.2) % Plt Count 546 H (140-440) K/mm3 [place] % (Auto) 8.1 H (0.0-7.3) % Seg Neutrophils % 71.8 H (40.0-70.0) % BUN 4 L (7-17) mg/dL Creatinine 0.4 L (0.6-1.2) mg/dL Medications & Allergies - Medications Allergies/Adverse Reactions: Allergies No Known Allergies Allergy (Verified 01/04/22 05:39) Home Medications: Home Medications Medication Instructions Recorded Confirmed Last Taken Type Amoxicillin/K Clav Tab [Augmentin 1 tab PO Q12HR 7 Days #14 tab 01/07/22 Unknown Rx 875 mg] Active Medications: Generic Name Dose Route Start Last Admin Trade Name Freq PRN Reason Stop Dose Admin Hydrocodone Bitart/Acetaminophen 2 each 01/05/22 12:30 01/07/22 20:32 Hydrocodone/Acetaminophen 5-325 Mg Tab PO 2 each Q6H PRN Administration Pain, Moderate (4-6) Benzocaine/Menthol 1 spray 01/05/22 12:30 01/05/22 14:46 Benzocaine/Menthol 20/0.5% Top [place] 56 Gm TP 1 spray PRN PRN Administration Episiotomy Pain Bisacodyl 10 mg 01/05/22 13:00 Bisacodyl 10 Mg Rect Supp [place] BID PRN Constipation Diphenhydramine HCl 25 mg 01/05/22 12:30 Diphenhydramine 25 Mg Cap PO Q6H PRN Itching Docusate Sodium 100 mg 01/06/22 22:00 01/11/22 23:51 Docusate Sodium 100 Mg Cap PO Not Given BID [facility] Ferrous Sulfate 325 mg 01/05/22 22:00 01/11/22 23:52 Ferrous Sulfate 325 Mg Tab PO Not Given BID [facility] Ibuprofen 800 mg 01/05/22 12:00 01/12/22 12:00 Ibuprofen 800 Mg Tab PO Not Given Q6H [facility] Magnesium Oxide 400 mg 01/13/22 10:00 Magnesium Oxide 400 Mg Tab PO QDAY [facility] Morphine Sulfate 2 mg 01/08/22 12:33 01/09/22 11:21 Morphine 2 Mg/1 Ml Inj IV 2 mg Q3H PRN Administration Pain, Moderate (4-6) Multi-Ingredient Ointment 1 applic 01/05/22 12:30 Lanolin/Zinc/Dimethicone (Lansinoh) 7 Gm TP PRN PRN Sore Nipples Multivitamins/Iron/Calcium 1 each 01/06/22 10:00 01/11/22 13:31 [id number] Fumarate-Folic Acid Vit Tab PO Not Given QDAY [facility] Promethazine HCl 25 mg 01/05/22 12:30 01/05/22 12:21 Promethazine 25 Mg Tab PO 25 mg Q6H PRN Administration Nausea And Vomiting Witch Chanel/Glycerin 1 each 01/05/22 12:30 01/05/22 14:47 Witch Chanel/ Glycerin Pad TP 1 each PRN PRN Administration Hemorrhoid/cleansing/soothing
[2022-01-12] MEDS: DOCUSATE SODIUM 100 MG CAP PO SCH (22:00)
[2022-01-12] MEDS: FERROUS SULFATE 325 MG TAB PO SCH (22:00)
[2022-01-13 04:22] LABS: Basophils % (Auto) 0.3 % (0.0-1.8); Eosinophils # (Auto) 0.2 K/mm3 (0.0-0.4); Eosinophils % (Auto) 2.3 % (0.0-4.3); Hematocrit 29.4 % (30.3-42.9); Hemoglobin 9.2 gm/dl (10.1-14.3); Lymphocytes # (Auto) 1.6 K/mm3 (1.2-5.4); Lymphocytes % (Auto) 21.2 % (13.4-35.0); Mean Corpuscular HGB Conc 31 % (30-34); Monocytes # (Auto) 0.7 K/mm3 (0.0-0.8); Monocytes % (Auto) 8.8 % (0.0-7.3); Platelet Count 561 K/mm3 (140-440); Red Blood Count 4.49 M/mm3 (3.65-5.03); Red Cell Distribution Width 18.8 % (13.2-15.2)
[2022-01-13 04:23] LABS: Mean Corpuscular Volume 66 fl (79-97)
[2022-01-13 04:35] LABS: Blood Urea Nitrogen 3 mg/dL (7-17); Calcium 8.5 mg/dL (8.4-10.2); Hemolysis Index 0
[2022-01-13 04:38] LABS: BUN/Creatinine Ratio 6
[2022-01-13] MEDS: IBUPROFEN 800 MG TAB PO SCH ×2 (06:50)
--- NOTE | 2022-01-13 09:13 | XRay Report ---
ABDOMEN 2 VIEW(S) INDICATION / CLINICAL INFORMATION: ileus. COMPARISON: Yesterday FINDINGS: TUBES / LINES: None. BOWEL GAS PATTERN: Small amount of retained contrast within the colon. Nonobstructive bowel gas patte rn. FREE AIR / EXTRALUMINAL GAS: None seen. ADDITIONAL FINDINGS: No significant additional findings. IMPRESSION: 1. No significant abnormality. Signer Name: Abdiel Mulligan MD Signed: 01/13/2022 9:09 AM Workstation Name: [id number]
[2022-01-13] MEDS ORDERED: MAGNESIUM OXIDE 400 MG TAB PO SCH (10:00)
--- NOTE | 2022-01-13 11:37 | Progress Note ---
Assessment and Plan - Patient Problems (1) Paralytic ileus Current Visit: Yes Status: Acute Plan to address problem: 1) FLD 2) Pt can be discharged from my perspective. 3) F/u with me prn 4) F/u with PCP re mild hypokalemia & mild hypomagnesemia Subjective Date of service: 01/13/22 Patient Reports: Positive: no new complaints, feels better, flatus Objective Vital Signs - 12hr 01/13/22 01/13/22 01/13/22 00:00 00:40 06:50 Temperature 98.4 F Pulse Rate 83 Respiratory 18 18 18 Rate Blood Pressure 122/72 O2 Sat by Pulse 98 Oximetry O2 Sat by Pulse Oximetry [ Anterior Bilateral Throughout] 01/13/22 01/13/22 07:38 07:45 Temperature 98.1 F Pulse Rate 81 Respiratory 20 Rate Blood Pressure 122/53 O2 Sat by Pulse 97 Oximetry O2 Sat by Pulse 98 Oximetry [ Anterior Bilateral Throughout] - Abdomen PM_46_EXABD1 4, PM_46_EXABD1 6, PM_46_EXABD1 8 Hernia: none - Labs 01/13/22 03:50 01/13/22 03:50 Diabetes panel 01/13/22 Range/Units 03:50 Sodium 137 (137-145) mmol/L Potassium 3.4 L (3.6-5.0) mmol/L Chloride 102.6 (98-107) mmol/L Carbon Dioxide 25 (22-30) mmol/L BUN 3 L (7-17) mg/dL Creatinine 0.5 L (0.6-1.2) mg/dL Glucose 82 (65-100) mg/dL Calcium 8.5 (8.4-10.2) mg/dL Calcium panel 01/13/22 Range/Units 03:50 Calcium 8.5 (8.4-10.2) mg/dL Pituitary panel 01/13/22 Range/Units 03:50 Sodium 137 (137-145) mmol/L Potassium 3.4 L (3.6-5.0) mmol/L Chloride 102.6 (98-107) mmol/L Carbon Dioxide 25 (22-30) mmol/L BUN 3 L (7-17) mg/dL Creatinine 0.5 L (0.6-1.2) mg/dL Glucose 82 (65-100) mg/dL Calcium 8.5 (8.4-10.2) mg/dL Adrenal panel 01/13/22 Range/Units 03:50 Sodium 137 (137-145) mmol/L Potassium 3.4 L (3.6-5.0) mmol/L Chloride 102.6 (98-107) mmol/L Carbon Dioxide 25 (22-30) mmol/L BUN 3 L (7-17) mg/dL Creatinine 0.5 L (0.6-1.2) mg/dL Glucose 82 (65-100) mg/dL Calcium 8.5 (8.4-10.2) mg/dL - Imaging Abdominal x-ray: report reviewed
--- NOTE | 2022-01-13 13:39 | Discharge Summary ---
Providers - Providers Date of Admission: 01/04/22 05:58 Date of discharge: 01/13/22 Attending physician: NORMA CALVO 01/06/22 10:02 psychiatry consult [Consult to Mental Health] [CONS] Routine Reason For Exam: [place] score 10 01/06/22 18:02 Consult to Case Management [CONS] Routine Services Needed at Discharge: Parts Classifier Notified:: closed at this time Additional Physician Instructions: Patient saying that she wants to talk to marriage and family social worker as she does not have adequate resourses to care for her . Want to know if marriage and family social worker can help her 01/08/22 12:34 Consult to Physician [CONS] Urgent Comment: Consulting Provider: CORNEL GUALLPA Physician Instructions: PPD#2 now with abd distension on IV abx, npo Reason For Exam: distended abd, abnormal KUB and CT scan; no flatus 01/10/22 13:10 Consult to Physician [CONS] Urgent Comment: Consulting Provider: ARUN ALONSO Physician Instructions: Reason For Exam: hypomagnesemia Primary care physician: NORMA CALVO Hospitalization Reason for admission: active labor Delivery: Laceration: 2nd degree Other procedures: none Discharge diagnosis: [place] baby: female Hospital course: She developed an ileus after her delivery and was followed by Hospitalist and Gen Surgery. She has now had a small bowel movement and is passing flatus. Condition at discharge: Good Disposition: 01 HOME / SELF CARE / HOMELESS Plan - Discharge Medications Prescriptions: Amoxicillin/K Clav Tab [Augmentin 875 mg] 1 tab PO Q12HR 7 Days #14 tab - Provider Discharge Summary Activity: routine, no sex for 6 weeks, no strenuous exercise Diet: routine Instructions: routine Additional instructions: [] Smoking cessation referral if applicable(refer to patient education folder for contact #) [] Refer to [facility] Booklet Call your doctor immediately for: * Fever > 100.5 * Heavy vaginal bleeding ( >1 pad per hour) * Severe persistent headache * Shortness of breath * Reddened, hot, painful area to leg or breast * Drainage or odor from incision. * Keep incision clean and dry at all times and follow doctor's instructions regarding bathing/showering - Follow up plan Follow up: NORMA CALVO MD [Primary Care Provider] - 02/03/22 Forms: C Discharge Summary, Work/School Excuse Out Patient, Work/School Release Form
--- NOTE | 2022-01-13 13:39 | Progress Note ---
Assessment and Plan A: PPD # 8 - with ileus P: Has been cleared by Gen Surgery and Hospitalist to go home F/U with [facility] in 4 weeks Subjective - Subjective Date of service: 01/13/22 Principal diagnosis: PPD#8 , Ileus Patient reports: appetite normal [place]: doing well Objective - Vital Signs Latest vital signs: Vital Signs Temp Pulse Resp BP Pulse Ox Pulse Ox 01/13/22 07:45 98 01/13/22 07:38 98.1 F 81 20 122/53 97 01/13/22 06:50 18 01/13/22 00:40 98.4 F 83 18 122/72 98 01/13/22 00:00 18 01/12/22 20:00 100 01/12/22 15:40 98.3 F 83 20 116/54 100 Intake and Output 01/12/22 01/13/22 01/13/22 22:59 06:59 14:59 Intake Total 200 600 120 Balance 200 600 120 Intake: Oral 200 120 Intake, Free Water 600 Other: Total, Intake Amount 200 120 # Voids Void 1 1 1 - Exam Breasts: Present: deferred Cardiovascular: Present: Regular rate Lungs: Present: Clear to auscultation Abdomen: Present: soft Uterus: Present: fundal height below umbilicus Extremities: Present: normal - Labs Labs: Abnormal lab results 01/13/22 01/13/22 Range/Units 03:50 03:50 Hgb 9.2 L (10.1-14.3) gm/dl Hct 29.4 L (30.3-42.9) % MCV 66 L (79-97) fl MCH 21 L (28-32) pg RDW 18.8 H (13.2-15.2) % Plt Count 561 H (140-440) K/mm3 [place] % (Auto) 8.8 H (0.0-7.3) % Potassium 3.4 L (3.6-5.0) mmol/L BUN 3 L (7-17) mg/dL Creatinine 0.5 L (0.6-1.2) mg/dL Magnesium 1.60 L (1.7-2.3) mg/dL
[2022-01-13 14:25] VITALS: BP 118/57
== END 2022-01-13 15:55 | disposition home or self-care (01) | DRG 774 ==
LOC: TRG 05:23 → APU 05:25 → OBSVTOIN 05:58 → TRG 05:58 → LD 07:49 → OB 01-05 12:40
PROVIDERS: ADMIT Obstetrics & Gynecology; ATTEND Obstetrics & Gynecology
PROC: 10E0XZZ Delivery of Products of Conception, External Approach (ICD-10-PCS; principal; 2022-01-05)
PROC: 0KQM0ZZ Repair Perineum Muscle, Open Approach (ICD-10-PCS; 2022-01-05)
PROC: 10H07YZ Insertion of Other Device into Products of Conception, Via Natural or Artificial Opening (ICD-10-PCS; 2022-01-05)
PROC: 10907ZC Drainage of Amniotic Fluid, Therapeutic from Products of Conception, Via Natural or Artificial Opening (ICD-10-PCS; 2022-01-05)
PROC: 3E0R3BZ Introduction of Anesthetic Agent into Spinal Canal, Percutaneous Approach (ICD-10-PCS; 2022-01-05)
PROC: 00HU33Z Insertion of Infusion Device into Spinal Canal, Percutaneous Approach (ICD-10-PCS; 2022-01-05)
DX: O76 Abnormality in fetal heart rate and rhythm complicating labor and delivery (principal); O86.12 Endometritis following delivery; O77.0 Labor and delivery complicated by meconium in amniotic fluid; O34.219 Maternal care for unspecified type scar from previous cesarean delivery; Z3A.38 38 weeks gestation of pregnancy; Z37.0 Single live birth; K56.0 Paralytic ileus; Z20.822 Contact with and (suspected) exposure to COVID-19; O70.1 Second degree perineal laceration during delivery; O90.81 Anemia of the puerperium; O99.63 Diseases of the digestive system complicating the puerperium; O99.285 Endocrine, nutritional and metabolic diseases complicating the puerperium; E83.42 Hypomagnesemia; E87.2 Acidosis; D50.9 Iron deficiency anemia, unspecified
CPT/HCPCS: 36415; 59025; 74018; 74019; 74177; 76816; 76857; 80048; 80053; 82805; 83735; 84100; 84443; 85007; 85014; 85018; 85025; 85027; 86592; 86850; 86900; 86901; 88307; 96360; G0378; J3490; J7502; J0290; J1580; J2270; J2405; J2590; J3010; J3475; J3480; J7120; Q0169; Q9967; U0003